=== PATIENT | male | born 1960 | race Caucasian/White ===

== ENCOUNTER → 2019-03-03 07:38 | Outpatient (CLI) | payer OTHER, SELFPAY ==
[2019-03-03 09:01] LABS: Blood Urea Nitrogen 15 mg/dL (7-18); Creatinine,Serum 0.88 mg/dL (0.70-1.30); Estimated Glomerular Filt Rate 89 ml/min (>60); GFR (African American) 107 ML/MIN (>60)
== END ==
PROVIDERS: Visit Provider Psychiatry & Neurology Neurology
DX: G40.119 Localization-related (focal) (partial) symptomatic epilepsy and epileptic syndromes with simple partial seizures, intractable, without status epilepticus (principal)
CPT/HCPCS: 36415; 82565; 84520

== ENCOUNTER → 2019-03-05 14:53 | Outpatient (CLI) | payer OTHER, SELFPAY ==
--- NOTE | 2019-03-05 15:03 | MR_ITS ---
PROCEDURE: MR HEAD/BRAIN WO/W CON CLINICAL INDICATION: LOCALIZATION RELATED EPILEPSY COMPARISON: No exams were available for comparison TECHNIQUE: Routine multiplanar multi echo sequences are performed without and with gadolinium enhancement. FINDINGS: No midline shift, mass effect, intracranial hemorrhage, hydrocephalus, or acute infarction. The cerebellopontine angles, cerebellum, and brainstem are unremarkable. No enhancing lesion is evident. There is mild generalized atrophy with only a few periventricular T2 white matter hyperintensities which may be related to skin anastacio gliotic change from microvascular disease. There is some irregularity of the superior surface of the hippocampal gyrus on the right with mild asymmetrical prominence of the temporal horn of the right lateral ventricle. 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 Please correlate with the EEG findings. The pituitary, optic chiasm, and craniocervical junction have an unremarkable appearance. There is atrophy of the corpus callosum. The mid and posterior aspect of the corpus callosum is missing consistent with partial agenesis of the corpus callosum. No mastoid effusion or sinus air-fluid level. IMPRESSION: 1. Partial agenesis of the corpus callosum 2. Mild cortical irregularity of the right hippocampal gyrus and mild prominence of the temporal horn of the right lateral ventricle. 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 Please correlate with EEG findings and history 3. Mild generalized atrophy with minimal periventricular ischemic gliotic change Dictated by: Cliff Giron MD 03/05/2019 18:18 Electronically signed by Cliff Giron MD in [place] 03/06/2019 10:49
== END ==
PROVIDERS: PCP Family Medicine; Visit Provider Psychiatry & Neurology Neurology
DX: G40.119 Localization-related (focal) (partial) symptomatic epilepsy and epileptic syndromes with simple partial seizures, intractable, without status epilepticus (principal)
CPT/HCPCS: 70553; A9576

== ENCOUNTER → 2019-09-20 15:52 | Outpatient (CLI) | payer OTHER, SELFPAY ==
[2019-09-20 18:32] LABS: Coronavirus 19 IgG Antibody Negative (Negative); Coronavirus 19 IgM Antibody Negative (Negative)
== END ==
PROVIDERS: PCP Family Medicine; Visit Provider Family Medicine
DX: Z03.818 Encounter for observation for suspected exposure to other biological agents ruled out (principal)
CPT/HCPCS: 36415; 86328

== ENCOUNTER → 2021-08-10 16:48 | Outpatient (CLI) | payer OTHER, SELFPAY ==
[2021-08-17 01:07] LABS: Pancreatic Elastase, Fecal 154 (>200)
== END ==
PROVIDERS: Visit Provider Internal Medicine Gastroenterology
DX: R19.5 Other fecal abnormalities (principal); R14.0 Abdominal distension (gaseous)
CPT/HCPCS: 82656

== ENCOUNTER → 2021-09-09 07:49 | Outpatient (CLI) | payer OTHER, SELFPAY ==
[2021-09-09 08:24] LABS: Basophils # 0.1 K/mm3 (0-0.2); Basophils % 2.1 % (0.1-2.0); Eosinophils # 0.1 K/mm3 (0.0-0.4); Eosinophils % 0.9 % (0.1-12.0); Hematocrit 45.4 % (42.0-52.0); Hemoglobin 15.4 g/dL (14.1-18.0); Lymphocytes # 2.1 K/mm3 (0.7-4.5); Lymphocytes % 30.4 % (10-50); Mean Corpuscular Hemoglobin 30.5 pg (27.0-31.2); Mean Corpuscular Volume 89.7 fl (80-94); Mean Platelet Volume 8.3 fl (7.4-10.4); Monocytes # 0.5 K/mm3 (0.1-1.0); Monocytes % 7.7 % (1.7-9.3); Neutrophils % 58.9 % (37.0-80.0); Platelet Count 298 K/mm3 (142-424); Red Blood Count 5.06 M/mm3 (4.60-6.20); Red Cell Distribution Width 13.2 % (11.5-17.5); White Blood Count 6.9 K/mm3 (4.8-10.8)
[2021-09-09 08:29] LABS: Alanine Aminotransferase 27 U/L (12-78); Albumin Level 4.2 g/dl (3.5-5.0); Albumin/Globulin Ratio 1.4 (1.1-1.8); Alkaline Phosphatase 122 U/L (38-126); Amylase 79 U/L (30-110); Aspartate Amino Transferase 37 U/L (17-59); Bilirubin,Total 0.3 mg/dl (0.2-1.3); Blood Urea Nitrogen 20 mg/dl (9-20); Calcium 9.4 mg/dl (8.4-10.2); Carbon Dioxide 27 mmol/L (22.0-30.0); Chloride 101 mmol/L (98-107); Estimated Glomerular Filt Rate 76 ml/min (>60); GFR (African American) 92 ML/MIN (>60); Glucose 111 mg/dl (74-100); Lipase 59 U/L (23-300); Sodium 136 mmol/L (136-145); Total Protein,Serum 7.2 g/dl (6.3-8.2)
--- NOTE | 2021-09-09 08:41 | CT_ITS ---
FINAL REPORT TECHNIQUE: Pre-and postcontrast axial imaging of the abdomen and pelvis was obtained. This study was performed with techniques to keep radiation doses as low as reasonably achievable, (ALARA). Individualized dose reduction technique using automated exposure control or adjustment of mA and/or kV according to the patient's size were employed. CLINICAL HISTORY: abnormal stool test FINDINGS: The lung bases are clear. There is focal fatty change adjacent to to the falciform ligament, the liver is otherwise homogeneous. The gallbladder is present. The spleen and adrenal glands, are unremarkable. There is no hypervascular pancreatic lesion. There is no pancreatic mass or peripancreatic inflammation. There is no hydronephrosis or renal mass. On precontrast imaging, there are several tiny nonobstructing left renal stones. There is no small bowel obstruction. There is a moderate amount of retained stool. There is no lymphadenopathy or ascites. IMPRESSION: 1. No pancreatic mass or findings of pancreatic inflammation. 2. No acute intra-abdominal abnormality. 3. Tiny nonobstructing left renal stones. Reviewed, Interpreted and Dictated by Anika Alex MD Transcribed by Radha Snyder Authenticated by nAika Alex MD on 09/09/2021 01:17:12 PM [facility]
[2021-09-10 08:22] LABS: CA 19-9 5 U/mL (0-35)
== END ==
PROVIDERS: PCP Family Medicine; Referring Provider Urology; Visit Provider Internal Medicine Gastroenterology
DX: Z01.812 Encounter for preprocedural laboratory examination (principal); Z20.822 Contact with and (suspected) exposure to COVID-19; R97.20 Elevated prostate specific antigen [PSA]; R19.5 Other fecal abnormalities
CPT/HCPCS: 36415; 74170; 80053; 82150; 83690; 85025; 86316; C9803; Q9967; U0003; U0005

== ENCOUNTER 2021-09-11 07:35 | Day surgery (SDC) | payer OTHER, SELFPAY ==
[2021-09-09 09:41] VITALS: BMI 26.6
[2021-09-11 07:52] VITALS: BP 150/74; PULSE 63; RESP 18; TEMP 36.4; O2SAT 97
--- NOTE | 2021-09-11 10:09 | P.PN_ITS ---
[facility] Anesthesia Checklist - Structural Data Admitted From: Home Planned Operative Procedure/s: prostate bx Consent for Planned Operative Procedure(s) Verified: Yes - Additional verifications Anesthesia Reactions: No Hx Blood Transfusions: No Blood Transfusion Reaction: No - Airway Assessment C-Spine Mobility Assessed: Yes TMJ Mobility Assessed: Yes Dentition: Poor Dentition - Neurological Assessment Level of Consciousness: Awake, Alert, Appropriate - Anesthesia Plan Anesthesia Risk discussed: Yes Anesthesia Plan: Verified ASA Class: III Anesthesia Type: MAC [facility] History I have reviewed the patient's past medical history: Yes Medical History: Reports:: BPH, Hyperlipidemia, Hypertension, Seizures Denies:: Cancer, Diabetes Mellitus Type 1, Diabetes Mellitus Type 2, Internal Pacemaker, MRSA *Have you ever received a pneumonia vaccine?: No *Have you received a flu vaccine this season?: Yes Other Medical History: Reports: Thyroid Disease. Denies: Blood Transfusion Reaction Anesthesia experience/problems:: none Other Surgeries: Yes: No Previous Surgery, Appendectomy, Colonoscopy, Hernia Repair. No: Pacemaker Amputation: No Fractures: No - *Social History Last grade of school completed: High school graduate Smoking Status: Former smoker Alcohol Intake: current Alcohol Intake Frequency:: holidays/special occasions only Substance Use Type: denies use *Occupational Status:: employed Housing: house Household Members: spouse *Travel in the last 8 weeks: None Family Hx:: Heart Attack
[2021-09-11 10:20] VITALS: BP 99/60; PULSE 58; RESP 16; TEMP 36.2; O2SAT 94
[2021-09-11 10:30] VITALS: BP 104/70; PULSE 67; RESP 16; TEMP 36.2; O2SAT 96
--- NOTE | 2021-09-11 10:39 | HMH.OPNOTE ---
Date of procedure: 09/11/21 Pre-op Diagnosis:: Elevated PSA Post-op Diagnosis:: Elevated PSA Procedure performed:: Prostate biopsies with transrectal ultrasound guidance Surgeon:: Zeke Kinsey MD AUTO BODY TECHNICIAN:: Glynn Meehan Anesthesia: MAC Estimated blood loss (mL): 0 Clinical Note:: 60-year-old white male with recent PSA elevation of 9.7 and suspicious prostate examination with some firmness on the left side. Patient presents for prostate biopsy. He started preoperative antibiotics yesterday and he will perform his preoperative enema. Operative findings:: Prostate measured 21.7 cm?. Small calcification was noted in the central zone. There were some hypoechoic areas on the left side as well as a hyperechoic area at the left apex. Operative note:: Patient taken to the operating suite after informed consent was obtained. On the stretcher he was placed into the left lateral decubitus position and monitored anesthesia care administered. After adequate analgesia the transrectal ultrasound probe was placed into the rectum and the prostate examined in a systematic fashion. The prostate measured 21.7 cm?. Small calcification was noted centrally. There were some hypoechoic areas in the left peripheral zone as well as a hyperechoic area in the left apex. Local anesthetic was placed into each neurovascular bundle and 12 biopsies then performed in a systematic fashion including through the hypoechoic and hyperechoic regions. The probe removed the patient tolerated the procedure well there are no complications. Condition: stable Disposition: same day Specimens:: Prostate biopsies x12 Complications:: None
[2021-09-11 10:40] VITALS: BP 126/84; PULSE 59; RESP 16; TEMP 36.2; O2SAT 98
[2021-09-11 10:50] VITALS: BP 118/56; PULSE 57; RESP 16; TEMP 36.6; O2SAT 98
== END 2021-09-11 10:50 | disposition home or self-care (01) ==
LOC: OR 07:36
PROVIDERS: PCP Family Medicine; Visit Provider Urology
PROC: (CPT 55700; principal; 2021-09-11 09:00)
DX: C61 Malignant neoplasm of prostate (principal); E78.5 Hyperlipidemia, unspecified; I10 Essential (primary) hypertension; R56.9 Unspecified convulsions; Z79.899 Other long term (current) drug therapy; Z82.3 Family history of stroke; Z88.0 Allergy status to penicillin
CPT/HCPCS: 55700

== ENCOUNTER → 2021-09-23 08:52 | Outpatient (CLI) | payer OTHER, SELFPAY ==
--- NOTE | 2021-09-23 08:52 | NM_ITS ---
FINAL REPORT CLINICAL HISTORY: prostate cancer 9:00am 26.8 mci tc mdp FINDINGS: Multiple projection images of the axial and appendicular skeleton were obtained after the intravenous injection of 26.8 mCi technetium 99m MDP. Correlation is made with right rib radiographs performed the same day. Increased tracer activity is seen in the right second anterior rib. No abnormality seen in the plain radiographs in this region. Mildly increased tracer activity is seen in the shoulders, knees, ankles consistent with degenerative change. No other abnormality is identified IMPRESSION: Focus of increased tracer activity in the right 2nd anterior rib of uncertain etiology. Differential diagnosis include nondisplaced fracture or bony metastases. This could be further evaluated with follow-up bone scan or chest CT. Other areas of increased tracer activity are felt to be degenerative. Reviewed, Interpreted and Dictated by Jamaal Ferguson III, MD Transcribed by Marnie Cavanaugh Authenticated and [facility]
--- NOTE | 2021-09-23 12:59 | XR_ITS ---
FINAL REPORT CLINICAL HISTORY: HOT SPOT ON RT RIB ON BONE SCAN, NO PAIN OR PRIOR INJURY PER PATIENT FINDINGS: RIGHT RIB SERIES 4 views of the right ribs show no fractures. There is no definite bony mass identified. There is no pneumothorax or pleural fluid collection. Frontal chest radiograph is unremarkable. IMPRESSION: Negative right rib series. Reviewed, Interpreted and Dictated by Jamaal Ferguson III, MD Transcribed by Inna Zambrano Authenticated and [facility]
== END ==
PROVIDERS: PCP Family Medicine; Visit Provider Urology
DX: C61 Malignant neoplasm of prostate (principal)
CPT/HCPCS: 71101; 78306; A9503

== ENCOUNTER → 2021-11-14 08:57 | Outpatient (CLI) | payer OTHER, SELFPAY | PROVIDERS: PCP Family Medicine; Visit Provider Urology | DX: U07.1 COVID-19 (principal); C61 Malignant neoplasm of prostate | CPT/HCPCS: C9803; U0003; U0005 ==

== ENCOUNTER 2021-11-16 09:34 | Day surgery (SDC) | payer OTHER, SELFPAY ==
[2021-11-12 10:52] VITALS: BMI 25.0
[2021-11-16 09:48] VITALS: BP 121/90; PULSE 66; RESP 18; TEMP 36.8; O2SAT 97
[2021-11-16 12:02] VITALS: BP 127/68; PULSE 64; RESP 18; TEMP 36.7; O2SAT 97
--- NOTE | 2021-11-16 12:22 | HMH.OPNOTE ---
Date of procedure: 11/16/21 Pre-op Diagnosis:: Prostate cancer Post-op Diagnosis:: Prostate cancer Procedure performed:: Gold fiducial placement with transrectal ultrasound guidance Surgeon:: Zeke Kinsey MD Anesthesia: local Estimated blood loss (mL): 0 Clinical Note:: 60-year-old white male with recently diagnosed high-grade prostate cancer presents for placement of gold fiducials for upcoming external beam radiation. He is also on hormonal therapy. Patient tested positive for COVID but is asymptomatic. We discussed placement of the seeds under local anesthetic as he had eaten this morning he wished to proceed. Operative findings:: Prostate was visualized easily and 4 gold seeds were placed into their appropriate positions in the prostate. Operative note:: Patient taken to the negative pressure room in the postanesthesia care unit due to his diagnosis of COVID. On the stretcher he was placed into the left lateral decubitus position. He had taken his preoperative antibiotic and enema. A transrectal ultrasound probe was placed into the rectum and the prostate was easily visualized. Local anesthetic was placed into each neurovascular bundle and after 3 minutes for skilled fiducial was placed into the left lateral base. A second was placed at the left lateral apex. Third seed was placed into the right lateral base and the fourth placed into the right lateral apex. Patient tolerated procedure well there are no complications. Condition: stable Disposition: same day Specimens:: None Complications:: None
== END 2021-11-16 12:12 | disposition home or self-care (01) ==
LOC: OR 09:35
PROVIDERS: PCP Family Medicine; Visit Provider Urology
PROC: (CPT 55876; principal; 2021-11-16 10:45)
DX: C61 Malignant neoplasm of prostate (principal); N40.0 Benign prostatic hyperplasia without lower urinary tract symptoms; E07.9 Disorder of thyroid, unspecified; I10 Essential (primary) hypertension
CPT/HCPCS: 55876; 76942; A4648

== ENCOUNTER 2023-10-08 08:04 | Outpatient (CLI) | payer OTHER, SELFPAY | END 2023-10-08 23:59 | disposition home or self-care (01) | LOC: LAB 08:05 | PROVIDERS: PCP Family Medicine; Visit Provider Family Medicine | DX: Z02.9 Encounter for administrative examinations, unspecified (principal) ==

== ENCOUNTER 2023-10-11 07:10 | Outpatient (CLI) | payer OTHER, SELFPAY ==
[2023-10-11 08:26] LABS: Chloride 103 mmol/L (98-107); Sodium 134 mmol/L (136-145)
[2023-10-11 08:27] LABS: Potassium 4.5 mmoL/L (3.5-5.1)
[2023-10-11 08:29] LABS: Alanine Aminotransferase 29 U/L (12-78); Albumin Level 4.2 g/dl (3.5-5.0); Albumin/Globulin Ratio 1.6 (1.1-1.8); Alkaline Phosphatase 150 U/L (38-126); Anion Gap 9.5 mEq/L (5-15); Aspartate Amino Transferase 35 U/L (17-59); Bilirubin,Total 0.3 mg/dl (0.2-1.3); Blood Urea Nitrogen 16 mg/dl (9-20); Carbon Dioxide 26 mmol/L (22.0-30.0); Cholesterol 239 mg/dl (140-200); Estimated Glomerular Filt Rate 98 ml/min (>60); GFR (African American) 118 ML/MIN (>60); Globulin 2.6 g/dL (1.3-3.2); Total Protein,Serum 6.8 g/dl (6.3-8.2); Triglycerides 161 mg/dl (30-150); VLDL Cholesterol 32 mg/dL (0-40)
[2023-10-11 08:30] LABS: Calcium 9.7 mg/dl (8.4-10.2); Chol/HDL Ratio 3.9 (1-3.5); Glucose 108 mg/dl (74-100); HDL Cholesterol 62 mg/dl (40-60)
[2023-10-11 08:41] LABS: Direct LDL Cholesterol 122.32 mg/dL (100-129)
[2023-10-11 09:01] LABS: Thyroid Stimulating Hormone 6.74 uIU/mL (0.465-4.68)
== END 2023-10-11 23:59 | disposition home or self-care (01) ==
PROVIDERS: PCP Family Medicine; Visit Provider Family Medicine
DX: E78.00 Pure hypercholesterolemia, unspecified (principal); E03.9 Hypothyroidism, unspecified
CPT/HCPCS: 36415; 80053; 80061; 84443

== ENCOUNTER 2024-03-06 08:35 | Outpatient (CLI) | payer BC, SELFPAY | END 2024-03-06 23:59 | disposition home or self-care (01) | LOC: LAB 08:35 | PROVIDERS: PCP Family Medicine; Visit Provider Internal Medicine Gastroenterology | DX: Z02.9 Encounter for administrative examinations, unspecified (principal) ==

== ENCOUNTER 2024-03-07 06:17 | Outpatient (CLI) | payer BC, SELFPAY ==
[2024-03-09 07:14] LABS: Calprotectin, Fecal 618 ug/g (0-120)
[2024-03-13 23:08] LABS: Lactoferrin, Fecal, Quant. 6.19 ug/mL(g) (0.00-7.24)
== END 2024-03-07 23:59 | disposition home or self-care (01) ==
LOC: LAB.DROPOF 06:21
PROVIDERS: PCP Family Medicine; Visit Provider Internal Medicine Gastroenterology
DX: R15.9 Full incontinence of feces (principal); R19.5 Other fecal abnormalities
CPT/HCPCS: 83630; 83993

== ENCOUNTER 2024-08-23 06:35 | Day surgery (SDC) | payer BC, SELFPAY ==
[2024-08-21 14:19] VITALS: BMI 26.6
[2024-08-23] VITALS (7 sets, daily range): BP systolic 91–128; BP diastolic 53–76; PULSE 58–78; RESP 14–18; TEMP 36.1–36.4; O2SAT 94–99
[2024-08-23] MEDS: LACTATED RINGERS 1000ML 1,000 ML 50 ML IV (07:22)
--- NOTE | 2024-08-23 07:25 | P.PNANES_ITS ---
[facility] Disclaimer: The information contained in this section may have been updated after the patient was seen, as this information can be updated by other users. Medical History (Updated 08/23/24 @ 07:15 by Robyn Quezada RN) Hypertension TBI (traumatic brain injury) Thyroid disease Hyperlipidemia Prostate cancer Surgical History History of hernia surgery History of appendectomy History of prostate surgery Family History (Updated 08/23/24 @ 07:15 by Robyn Quezada RN) Other Diabetes Social History (Updated 08/23/24 @ 07:15 by Robyn Quezada RN) Smoking Status: Never smoker second hand exposure: No alcohol intake: current alcohol intake frequency: holidays/special occasions only substance use type: denies use current occupational status: retired Travel in the last 8 weeks?: None household members: spouse housing: house 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 current occupational exposures/hazards: No caffeine: Yes Have you lived/traveled outside US in past 30 days?: No Contact w/someone who lives/traveled outside US past 30 days?: No Exposure to someone with infectious disease in past 14 days?: No Do you have a fever (greater than 100.4 F or 38 C)?: No Have you tested positive for COVID-19?: No Exposed to someone with COVID-19 in past 14 days?: No Do you have a sore throat?: No Do you have a cough?: No Do you have any weakness?: No Are you experiencing any nausea/vomitting?: No Do you have any diarrhea?: No Are you experiencing any unusual bleeding?: No Do you have any muscle aches/pain?: No Do you have any abdominal pain?: No Are you experiencing loss of taste or smell?: No [facility] [place] Anesthesia Checklist Patient Identification Patient Identification: Arm Band and Verbal (Name & ) Structural Data Admitted From: Home Planned Operative Procedure/s: colonoscopy Consent for Planned Operative Procedure(s) Verified: Yes Verified Documents: Surgical Consent NPO Status Verified Time NPO: 00:00 Chart Verification Results Verified: None Additional verifications Anesthesia Reactions: No Hx Blood Transfusions: No Blood Transfusion Reaction: No Airway Assessment Mallampati Score:: Class II C-Spine Mobility Assessed: Yes TMJ Mobility Assessed: No Dentition: Good Dentition Neurological Assessment Level of Consciousness: Awake, Alert and Appropriate Hx Seizures: Yes Numbness or tingling in extremities: No Anesthesia Plan Anesthesia Risk discussed: Yes Anesthesia Plan: Verified ASA Class: II Anesthesia Type: MAC
--- NOTE | 2024-08-23 07:31 | EXP.HP ---
History of Present Illness *Admission Date: 08/23/24 *Reason for visit:: Fecal seepage/elevated fecal calprotectin/radiation proctitis/mucus in stoo *History of present illness: Mr. Iqbal is a 63-year-old gentleman who is here for diagnostic colonoscopy secondary to seepage, fecal urgency and mucus in stool. He did have an elevated fecal calprotectin previously. The examination is deemed medically necessary for diagnostic colonoscopy. The patient has been seen, interviewed and examined prior to the procedure by both myself and the anesthesia provider. [facility] Disclaimer: The information contained in this section may have been updated after the patient was seen, as this information can be updated by other users. Medical History (Updated 08/23/24 @ 07:34 by René Mueller II, MD) Hypertension TBI (traumatic brain injury) Thyroid disease Hyperlipidemia Prostate cancer Surgical History History of hernia surgery History of appendectomy History of prostate surgery Family History (Updated 08/23/24 @ 07:15 by Robyn Quezada RN) Other Diabetes Social History (Updated 08/23/24 @ 07:15 by Robyn Quezada RN) Smoking Status: Never smoker second hand exposure: No alcohol intake: current alcohol intake frequency: holidays/special occasions only substance use type: denies use current occupational status: retired Travel in the last 8 weeks?: None household members: spouse housing: house 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 current occupational exposures/hazards: No caffeine: Yes Have you lived/traveled outside US in past 30 days?: No Contact w/someone who lives/traveled outside US past 30 days?: No Exposure to someone with infectious disease in past 14 days?: No Do you have a fever (greater than 100.4 F or 38 C)?: No Have you tested positive for COVID-19?: No Exposed to someone with COVID-19 in past 14 days?: No Do you have a sore throat?: No Do you have a cough?: No Do you have any weakness?: No Are you experiencing any nausea/vomitting?: No Do you have any diarrhea?: No Are you experiencing any unusual bleeding?: No Do you have any muscle aches/pain?: No Do you have any abdominal pain?: No Are you experiencing loss of taste or smell?: No Other Medical History Have you received the Flu Vaccine for this season: Yes Have you received the Pneumonia Vaccine: No Review of Systems Review of Systems Review of systems (narrative): Negative *Cardiovascular Comments: Negative *Gastrointestinal Comments: Negative *Genitourinary Comments: Negative *Musculoskeletal Comments: Negative *Neurologic Comments: Negative Meds Home Medications and Allergies Home Medications ?Medication ?Instructions ?Recorded ?Confirmed ?Type bupropion HCl 150 mg 24 hr tablet, 150 mg PO DAILY mood 08/17/21 08/23/24 History extended release doxazosin 2 mg tablet 2 mg PO HS htn 08/17/21 08/23/24 History galantamine 4 mg tablet 4 mg PO BID memory 08/17/21 08/23/24 History melatonin 5 mg capsule 5 mg PO HS sleep 08/17/21 08/23/24 History omeprazole 40 mg capsule,delayed 40 mg PO DAILY GERD 08/17/21 08/23/24 History release getdm-i-tcldghzytpcmf 400 unit 400 unit PO DAILY PRN per md 03/06/24 08/23/24 History tablet (Beano) ascorbate calcium (vitamin C) 500 500 mg PO DAILY 03/06/24 08/23/24 History mg tablet calcium polycarbophil 625 mg 1,250 mg PO DAILY 03/06/24 08/23/24 History tablet (FiberCon) levothyroxine 75 mcg tablet 75 mcg PO DAILY 03/06/24 08/23/24 History (Synthroid) memantine 10 mg tablet 10 mg PO BID 03/06/24 08/23/24 History methylphenidate HCl 10 mg tablet 10 mg PO BID 03/06/24 08/23/24 History multivitamin 1 tab PO DAILY 03/06/24 08/23/24 History omega 6-hwt-tpa-fish oil 300 1 cap PO DAILY 03/06/24 08/23/24 History mg-1,000 mg capsule (Fish Oil) oxcarbazepine 300 mg tablet 300 mg PO BID seizures 03/06/24 08/23/24 History rosuvastatin 40 mg tablet 40 mg PO DAILY 03/06/24 08/23/24 History mesalamine 400 mg capsule (with 1,200 mg (3 x 400 mg) PO BID #180 03/10/24 08/23/24 Rx delayed release tablets inside) ea sodium,potassium,mag sulfates 17.5 See Rx Instructions PO .COMPLEX 08/08/24 08/23/24 Rx gram-3.13 gram-1.6 gram oral soln #354 mL (Suprep Bowel Prep Kit) asanyr-alqwkdrr-oynwzvr 1 cap PO .With meals #90 caps 08/16/24 08/23/24 Rx 36,000-114,000-180,000 unit capsule,delay rel (Creon) New Prescriptions to Start Prescriptions: Allergies Allergy/AdvReac Type Severity Reaction Status Date / Time penicillin V Allergy Mild Unknown Verified 08/23/24 07:05 allergy reaction Exam Data for Last 24 hours Vital signs and Labs for Last 24 Hours: Temp Pulse Resp BP Pulse Ox O2 Del Method 97.5 F L 58 L 18 128/73 96 Room Air 08/23/24 07:07 08/23/24 07:07 08/23/24 07:07 08/23/24 07:07 08/23/24 07:07 08/23/24 07:07 I & O for Last 24 hours: Intake & Output 08/20/24 08/21/24 08/22/24 08/23/24 23:59 23:59 23:59 23:59 Weight 165 lb *Routine HEENT Exam Head: Present normocephalic Eye: Present EOMI and PERRL ENT: Present mucous membranes moist *Routine Neck Exam Neck: Present supple *Routine Respiratory Exam Respiratory: Present CTA bilaterally *Routine Cardiovascular Exam Cardiovascular: Present RRR *Routine Abdominal Exam Abdominal: Present soft and normoactive bowel sounds; Absent tenderness *Routine Rectal Exam Rectal:: deferred *Routine Genitalia Exam Genitalia:: deferred *Routine Extremities Exam Extremities: Absent cyanosis, clubbing or edema *Routine Skin Exam Skin: Present warm; Absent rash *Routine Neurological Exam Neurological: Present alert and oriented X3 Assessment and Plan *Assessment and plan (1) Fecal soiling: Status: Acute Category: Medical Code(s): R15.1 - Fecal smearing (2) Incomplete passage of stool: Status: Acute Category: Medical Code(s): R15.0 - Incomplete defecation (3) Radiation proctitis: Status: Acute Category: Medical Code(s): K62.7 - Radiation proctitis (4) Fecal incontinence: Status: Acute Category: Medical Code(s): R15.9 - Full incontinence of feces (5) Mucus in stool: Status: Acute Category: Medical Code(s): R19.5 - Other fecal abnormalities (6) Personal history of adenomatous and serrated colon polyps: Status: Acute Category: Medical Code(s): Z86.0101 - Personal history of adenomatous and serrated colon polyps Plan A/P: 1. Fecal soiling/incontinence with incomplete passage of stool and mucus in stool is the preprocedural diagnosis. The patient will be anesthetized/sedated using MAC sedation. The patient has been seen and examined. Cardiac and lung assessment prior to the examination is stable. Proceed with planned diagnostic colonoscopy.
--- NOTE | 2024-08-23 07:38 | HMH.PROCNOTE ---
[facility] Procedure Note Date: 08/23/24 Time: 07:52 Procedure Note:: Colonoscopy Procedure Report: Colonoscopy with cold snare polypectomy and cold biopsies Endoscopist: René Mueller II, MD Referring physician: Chin Cochran MD Date of Procedure: August 23, 2024 Equipment: Olympus 190 variable stiffness pediatric colonoscope Sedation: MAC sedation Indication: Mr. Iqbal is a 63-year-old gentleman who is here for diagnostic colonoscopy. He has had fecal soiling and seepage. This has been going on for about a year and was occurring before he was diagnosed with prostate cancer. At the time of his colonoscopy in July 2021, I had found a left lateral margin prostate nodule and referred the patient to Dr. Zeke Kinsey (urology). He has had radiation treatment and followed. He is on FiberCon 1 tablet twice daily and Creon. He was also on mesalamine. He did feel that one of the medications was causing more of the leakage and seepage and he stopped this. His colonoscopy in July 2021 revealed 2 polyps (small serrated adenoma x 1/hyperplastic polyp x 1) and he was given 5-year surveillance interval. His brother had colon cancer in his early 50s. The patient does note some mucus with his bowel movements but no blood. He has had no abdominal pain or weight loss. He does have some bowel frequency and bloating. Procedure: Prior to the procedure, a history and physical exam was performed, and patient's medications and allergies were reviewed. The risks, benefits and alternatives of the sedation and procedure were discussed with the patient. All questions were answered and informed consent was obtained. The patient was brought to the procedure room. Patient identification and proposed procedure were verified by the physician and the nurse. The patient was placed in a left lateral decubitus position and the scope was passed under direct vision. Throughout the procedure, the patient's blood pressure, pulse, and oxygen saturations were monitored continuously. The colonoscopy was accomplished without difficulty. The patient tolerated the procedure well. Findings: On digital rectal examination there was normal rectal tone. There were no external hemorrhoids. The colonoscope was introduced through the anal canal to the rectum and advanced to the cecum. The ileocecal valve and appendiceal orifice were identified. The scope was advanced a short distance into the ileum which appeared grossly normal. The scope was then withdrawn into the colon. The cecum, ascending and transverse colon and mucosa were grossly normal. There was a single 6 to 7 mm polyp in the transverse colon removed via cold snare polypectomy. Random biopsies were taken from the right colon to rule out microscopic colitis. There were scattered diverticuli throughout the descending and sigmoid colon (LEFT colon). The rectum itself was normal. Upon retroflexion within the rectum there were grade 1 internal hemorrhoids. There was no clear evidence of any radiation proctitis. The preparation was excellent throughout with Jefferson Preparation Score of 9. The cecal time was 12 minutes. Impression: 1. Transverse colon polyp (6 to 7 mm) 2. Left-sided diverticulosis 3. Small grade 1 internal hemorrhoids Plan: I will follow-up the polyp histology and recommend repeat surveillance colonoscopy again in 5 years. I will follow-up the random biopsies. I would continue fiber bulk (FiberCon 2 tablets p.o. twice daily) and discontinue mesalamine or Creon which she feels has worsened his leakage/seepage. I will discuss all the findings with the patient and family.
== END 2024-08-23 08:46 | disposition home or self-care (01) ==
PROVIDERS: PCP Family Medicine; Visit Provider Internal Medicine Gastroenterology
PROC: 0DJD8ZZ Inspection of Lower Intestinal Tract, Via Natural or Artificial Opening Endoscopic (ICD-10-PCS; CPT 45378; principal; 2024-08-23 07:30)
DX: R15.1 Fecal smearing (principal); K62.7 Radiation proctitis; R15.9 Full incontinence of feces; R19.5 Other fecal abnormalities; Z86.0101 Personal history of adenomatous and serrated colon polyps; D12.3 Benign neoplasm of transverse colon; K57.30 Diverticulosis of large intestine without perforation or abscess without bleeding; K64.0 First degree hemorrhoids
CPT/HCPCS: 45380; 45385; J7120

== ENCOUNTER 2025-01-11 08:16 | Outpatient (CLI) | payer MEDICARE, SELFPAY ==
--- OUTSIDE RECORDS SUMMARY | 2024-02-20 10:15 | XMS_ITS ---
Author [facility] Address [address] [facility] [address] [place] [id number] Care Team Providers Care Chief Lifestyle Officer Name Role Phone Felix Cochran Primary Care Provider [phone] Hair Currie Unavailable [phone] Allergies Allergen (clinical drug ingredient) Drug/Non Drug Allergy documented on EMR Reaction Allergy Type Onset Date Status Penicillin Unknown Drug Allergy Active Results Component Value Reference Range Notes CBC Fingerstick (in house) Reviewed date:02/21/2024 10:09:18 AM Interpretation: Performing Lab: Notes/Report: wbc 9.9 3.5 - 10 lym 19.5% 15 - 50 mid 5.1% 2 - 15 gran 75.4% 35 - 80 rbc 4.52 3.5 - 5.5 hgb 13.3 11.5 - 16.5 hct 40.4 35 - 55 mcv 89.4 75 - 100 mch 29.6 25 - 35 mchc 33.1 31 - 38 plat 219 100 - 400 REASON FOR VISIT runny nose lost voice few days ago Medications Medication SIG (Take, Route, Frequency, Duration) Notes Start Date End Date Status buPROPion HCl ER (SR) 150 MG 1 tablet in the morning Orally Once a day; Duration: 90 days Active Levothyroxine Sodium 75 MCG 1 tablet in the morning on an empty stomach Orally Once a day; Duration: 90 days Active Ritalin 10 MG [address] omach Orally Twice a day 01/20/2024 Active Betamethasone Dipropionate 0.05 % 1 application Externally Once a day 06/09/2023 Active Omeprazole 40 MG 1 cap(s) Orally once daily; Duration: 90 days Active Galantamine Hydrobromide 4 MG 1 tab(s) orally 2 times a day; Duration: 90 days Active Memantine HCl 10 MG 1 tab(s) orally 2 ti mes a day; Duration: 90 days Active Doxazosin Mesylate 2 MG 1 tab(s) orally once a day; Duration: 90 days Active Melatonin 5 MG 1 CAP(S) Orally ONCE A DAY (AT BEDTIME) Active Align 4 MG as directed Orally 06/09/2023 Active Multivitamin - 1 tab(s) orally once a day Active Fish Oil 500 MG 1 cap(s) orally once daily Active Fiber Choice 1 TABS P.O. Q DAY Active Cefdinir 300 MG 1 cap(s) Orally Two times a day; Duration: 7 days 02/20/2024 Active Rosuvastatin Calcium 40 MG 1 tablet Oral ly At Bed Time; Duration: 30 day(s) 08/11/2023 Active Vitamin C 1000 MG 1 tablet Orally Once a day; Duration: 30 day(s) Active OXcarbazepine 300 MG 1 & 1/2tablet Orall y Twice a day Active SAMe 400 MG as directed Orally T wo times a day Active Vital Signs Weight 164.4 lbs 02/20/2024 Blood pressure systolic 130 mm Hg 02/20/20 24 Blood pressure diastolic 84 mm Hg 024 Heart Rate 95 /min 02/20/2024 Height 66.25 in 02/20/2024 BMI 26.33 kg/m2 02/20/2024 Encounters Encounter Location Date Provider Diagnosis [facility] [address] [place], [place] [id number] 02/20/2024 Hair Currie Acute URI J06.9 Assessments Encounter Date Diagnosis (ICD Code) Assessment Notes Treatment Notes Treatment Clinical Notes Section Notes 02/20/2024 Acute URI (ICD-10 - J06.9) Plan Of Treatment Medication Medication Name Sig Start Date Stop Date Notes Cefdinir 300 MG 1 cap(s) Orally Two times a day; Duration: 7 days 02/20/2024 Next Appt Details Follow Up: prn, Reason: Provider Name:Felix Batista , 02/25/2025 11:00:00 AM, [address], [address], [place], [phone], Progress Notes * MERLYN KEY GENODOB:1960 (64 yo M)Acc No.[id number]:02/20/2024 Progress Notes Patient: MERLYN SILVA Provider: Jose Currie M.D. :1960 A ge:63 Y S ex:Male Date:02/20/2024 Address: [address], [place], [id number] Pcp:Felix Cochran Subjective: * Chief Complaints: * 1 . Runny nose lost voice few days ago. * HPI: E NT/respiratory: 63 year old male presents with c/o cough P t complains of greenish yellow sputum production cough that started last week. Associated with nasal congestion and fatigue. Denies : Fever. D enies : body aches. * ROS: D ERMATOLOGY: no R jaskaran. n o H lux. G ASTROENTEROLOGY: no N ausea. n o V omiting. U ROLOGY: no D ifficulty urinating. n o B lood in urine. * Medical History: S eizures, Hyperlipidemia, Post remote head trauma, Overactive bladder. * Surgical History: B rain 09/1988, Appendectomy , colonoscopy with polypectomy, Dr. Mueller 05/2010, Cochlear implant, [facility] 06/2019. * Hospitalization/Major Diagno stic Procedure: D enies Past Hospitalization. * Family History: F ather: . M other: alive. 2 brother(s) , 5 sister(s) . 1 son(s) , 1 daughter(s) . . * Social History: C URRENT TOBACCO USE S moking Status: Patient does NOT smoke. C affeine: yes, frequency:. Marital Status: . Past smoking status: yes, PPD: occasional , years: ,determination:. Alcohol: socially, Type: , Frequency: ,Years: , Determination:. * Medications: T aking Rosuvastatin Calcium 40 MG Tablet 1 tablet Orally At Bed Time , Taking Vitamin C 1000 MG Tablet 1 tablet Orally Once a day , Taking OXcarbazepine 300 MG Tablet 1 & 1/2tablet Orally Twice a day , Taking SAMe 400 MG Tablet as directed Orally Two times a day , Taking Fiber Choice 1 TABS P.O. Q DAY , Taking Multivitamin - Tablet 1 tab(s) orally once a day , Taking Fish Oil 500 MG Capsule 1 cap(s) orally once daily , Taking Melatonin 5 MG Tablet 1 CAP(S) Orally ONCE A DAY (AT BEDTIME) , Taking Align 4 MG Capsule as directed Orally , Taking Betamethasone Dipropionate 0.05 % Cream 1 application Externally Once a day , Taking Omeprazole 40 MG Capsule Delayed Release 1 cap(s) Orally once daily , Taking Memantine HCl 10 MG Tablet 1 tab(s) orally 2 times a day , Taking Doxazosin Mesylate 2 MG Tablet 1 tab(s) orally once a day , Taking Galantamine Hydrobromide 4 MG Tablet 1 tab(s) orally 2 times a day , Taking buPROPion HCl ER (SR) 150 MG Tablet Extended Release 12 Hour 1 tablet in the morning Orally Once a day , Taking Levothyroxine Sodium 75 MCG Tablet 1 tablet in the morning on an empty stomach Orally Once a day , Taking Ritalin 10 MG Tablet 1 tablet on empty stomach Orally Twice a day , Discontinued Myrbetriq 25 MG Tablet Extended Release 24 Hour 1 orally once daily , Discontinued Sildenafil Citrate 20 MG Tablet 2 tab(s) orally as directed , Medication List reviewed and reconciled with the patient * Allergies: P enicillin. Objective: * Vitals: W t:164.4, Temp:98.0, BP:130/84, HR:95, Nurse:carolyn, Ht: 66.25, BMI:26.33. * Examination: E NT/Respiratory: General Appearance: N AD. O ral cavity : m inimal erythema without exudate on pharynx. N priya : n o cervical lymphadenopathy. H eart : RRR. L ungs: c lear to auscultation bilaterally. Assessment: * Assessment: 1Bre butler URI - J06.9 (Primary) Plan: * Treatment: Value Reference Range w bc 9.9 3.5 - 10 * l ym 19.5% 15 - 50 * m id 5.1% 2 - 15 * g ran 75.4% 35 - 80 * r bc 4.52 3.5 - 5.5 * h gb 13.3 11.5 - 16.5 * h ct 40.4 35 - 55 * m cv 89.4 75 - 100 * m ch 29.6 25 - 35 * m chc 33.1 31 - 38 * p lat 219 100 - 400 * Ifrah Martin 02/20/2024 2:20:20 PM > , Provider reviewed results while patient in office. * Procedure Codes: 3 6416 CAPILLARY BLOOD DRAW, 16358 CBC WITH AUTO DIFF * Follow Up: p rn * Images: Billing Information: * Visit Code: 56241 Office Visit, Est Pt., Level 3. * Procedure Codes: 94005 CAPILLARY BLOOD DRAW. 32947 CBC WITH AUTO DIFF. * Electronic signature of Lolly Currie MD on 01/11/2025 at 08:56 AM EDT Sign off status: Pending * Provider: Jose Currie M.D. Date: 04/21/2023 Generated for Iraidai lenny/Antony/eTransmitting on: 0 01/11/2025 08:56 AM EDT History and Physical Notes * HPI (History of Present Illness) Category Sub-Category Detail Notes Category Not es ENT/respiratory cough Pt complains of greenish yellow sputum production cough that started last week. Associated with nasal congestion and fatigue Fever body aches Examination Category Sub-Category Detail Notes Category Not es ENT/Respiratory Oral cavity : minimal erythema without exudate on pharynx Neck : no cervical lymphade nopathy Heart : RRR Lungs: clear to auscultatio n bilaterally General Appearance: NAD
--- OUTSIDE RECORDS SUMMARY | 2024-03-05 12:15 | XMS_ITS ---
[facility] Address [address] [facility] [address] [place] [phone] Care Team Providers Care Larry Car Operator Name Role Phone Felix Cochran Primary Care Provider Allergies Allergen (clinical drug ingredient) Drug/Non Drug Allergy documented on EMR Reaction Allergy Type Onset Date Status Penicillin Unknown Drug Allergy Active REASON FOR VISIT 2 mo check up, Needs colon cancer screening & flu vaccine Medications Medication SIG (Take, Route, Frequency, Duration) Notes Start Date End Date Status Galantamine Hydrobromide 4 MG 1 tab(s) orally 2 times a day; Duration: 90 days Active buPROPion HCl ER (SR) 150 MG 1 [...] Orally once daily; Duration: 90 days Active Memantine HCl 10 MG 1 tab(s) orally 2 ti mes a day; Duration: 90 days Active Doxazosin Mesylate 2 MG 1 tab(s) orally once a day; Duration: 90 days Active Align 4 MG as directed Orally 06/09/2023 Active SAMe 400 MG as directed Orally T wo times a day Active Fiber Choice 1 TABS P.O. Q DAY Active Multivitamin - 1 tab(s) orally once a day Active Fish Oil 500 MG 1 cap(s) orally once daily Active Melatonin 5 MG 1 CAP(S) Orally ONCE A DAY (AT BEDTIME) Active Rosuvastatin Calcium 40 MG 1 tablet Oral ly At Bed Time; Duration: 30 day(s) 08/11/2023 Active Vitamin C 1000 MG 1 tablet Orally Once a day; Duration: 30 day(s) Active OXcarbazepine 300 MG 1 & 1/2tablet Orall y Twice a day Active Vital Signs Weight 163.4 lbs 03/05/2024 Blood pressure systolic 132 mm Hg 03/05/20 24 Blood pressure diastolic 80 mm Hg 024 Heart Rate 70 /min 03/05/2024 Height 66.25 in 03/05/2024 BMI 26.17 kg/m2 03/05/2024 Encounters Encounter Location Date Provider Diagnosis [facility] [address] [facility] [address] [facility] [address] [place] [phone] 03/05/2024 Felix Cochran 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 GI consult anticipated. 03/05/2024 Hearing deficit, bilateral (ICD-10 - H91.93) 03/05/2024 Acquired hypothyroidism (ICD-10 - E03.9) Plan Of Treatment Treatment Notes Assessment Notes Organic affective disorder continue pres ent treatment. GI consult anticipated. Next Appt Details Follow Up: 3 Months, Reason: Provider Name:Felix Batista er, 02/25/2025 11:00:00 AM, [address] [facility], [address], [place], [phone], Progress Notes * MERLYN KEY GENODOB:1960 (64 yo M)Acc No.[id number]:03/05/2024 Progress Notes Patient: Tonja URENAMERLYN WARD Provider: Felix Cochran M.D. :1960 A ge:63 Y S ex:Male Date:03/05/2024 Address: [address], [place], [id number] Subjective: * Chief Complaints: * 1 . 2 mo check up. 2. Needs colon cancer screening & flu vaccine. * HPI: P sychology: The patient is here for a check up and states refills are not needed at this time. Pt states he is doing good and denies any new concerns. G astroenterology: Will see Dr. Mueller tomorrow. Thinks he has bowel issues related to irradiation for prostate CA. * ROS: D ERMATOLOGY: no R jaskaran. n o H lux. G ASTROENTEROLOGY: no N ausea. n o V omiting. U ROLOGY: no D ifficulty urinating. n o B lood in urine. * Medical History: S eizures, Hyperlipidemia, Post remote head trauma, Overactive bladder. * Surgical History: B rain 09/1988, Appendectomy , colonoscopy with polypectomy, Dr. Mueller 05/2010, Cochlear implant, [facility] 06/2019. * Family History: F ather: . M [...] stomach Orally Twice a day , Discontinued Cefdinir 300 MG Capsule 1 cap(s) Orally Two times a day , Medication List reviewed and reconciled with the patient * Allergies: P enicillin. Objective: * Vitals: W t:163.4, Temp:97.9, BP:132/80, HR:70, Nurse:ISABELA, Ht: 66.25, BMI:26.17. * Examination: G eneral Examination: General Appearance: N AD. H EENT: u nremarkable.?Oral cavity: n o lesions, mucosa moist and WNL, no erythema. N priya: s upple, no lymphadenopathy.. C hest: n ormal shape and expansion. H eart: R SR. L ungs: c lear to auscultation. A bdomen: s oft and nontender, no organomegaly or masses.. N eurologic Exam: I ntact, gait normal. S kin: n ormal, no rash. P eripheral pulses: n ormal . B ack: normal. E xtremities: n o leg edema. Assessment: * Assessment: 1. O rganic affective disorder - F06.30 (Primary) 2 . H earing deficit, bilateral - H91.93 3 . A cquired hypothyroidism - E03.9 Plan: * Treatment: * Follow Up: 3 Months * Images: Billing Information: * Visit Code: 70826 Office Visit, Est Pt., Level 3. * Procedure Codes: * Electronic signature of Felix Cochran MD on 01/11/2025 at 08:58 AM EDT Sign off status: Pending * Provider: Felix Cochran M.D. Date: 05/05/2023 Generated for Jimmie galvez/Antony/eTransmitting on: 0 01/11/2025 08:58 AM EDT History and Physical Notes * Examination Category Sub-Category Detail Notes Category Not es General Examination HEENT: unremarkable Heart: RSR Lungs: clear to auscultatio n Abdomen: soft and nontender, no organomegaly or masses. Extremities: no leg edema General Appearance: NAD Skin: normal, no rash Neurologic Exam: Intact, gait normal Neck: supple, no lymphaden opathy. Oral cavity: no lesions, mucosa m oist and WNL, no erythema Peripheral pulses: normal Back: normal Genitalia: Chest: normal shape and exp ansion
--- OUTSIDE RECORDS SUMMARY | 2024-06-14 12:15 | XMS_ITS ---
Author Organization [facility] Address [address] [place] [id number] Care Team Providers Care Booth Usher Name Role Phone Felix Cochran Primary Care Provider Allergies Allergen (clinical drug ingredient) Drug/Non Drug Allergy documented on EMR Reaction Allergy Type Onset Date Status Penicillin Unknown Drug Allergy Active Results Component Value Reference Range Notes P-Comprehensive Metabolic Pa jane (CMP) Reviewed date:06/18/2024 12:24:11 PM Interpretation:gluc 102, alk phos 173 Performing Lab: Notes/Report: Test performed by [email or web address] , [address], [place] [address] Darwin Torrez MD, Appeals Analyst CLIA: [id number] Sodium 136 135-145 mmol/L Potassium 4.0 3.5-5.3 mmol/L Chloride 102 97-108 mmol/L CO2 22 22-32 mmol/L Glucose 102 65-99 mg/dL BUN 18 8-23 mg/dL Creatinine 0.81 0.70-1.30 mg/dL Calcium 9.0 8.6-10.4 mg/dL eGFR by Creatinine 98 >59 mL/min/1.73m2 Protein 6.9 6.0-8.3 g/dL Albumin 4.2 3.5-5.3 g/dL Alkaline Phosphatase 173 40-129 IU/L ALT (SGPT) 21 <5-55 IU/L AST (SGOT) 26 <5-46 IU/L Bilirubin, Total <0.2 <0.2-1.2 mg/dL A/G Ratio 1.6 1.1-2.5 REASON FOR VISIT 3 month Medications Medication SIG (Take, Route, Frequency, Duration) Notes Start Date End Date Status Ritalin 10 MG [address] omach Orally Twice a day 05/28/2024 Active Memantine HCl 10 MG 1 tab(s) orally 2 ti mes a day; Duration: 90 days Active Galantamine Hydrobromide 4 MG TAKE ONE TABLET BY MOUTH TWICE A DAY; Duration: 90 Active buPROPion HCl ER (SR) 150 MG TAKE ONE TABLET BY MOUTH EVERY MORNING; Duration: 90 Active Rosuvastatin Calcium 40 MG TAKE 1 TABLET BY MOUTH AT BEDTIME; Duration: 30 Active Align 4 MG as directed Orally 06/09/2023 Active Betamethasone Dipropionate 0.05 % 1 application Externally Once a day 06/09/2023 Active Levothyroxine Sodium 75 MCG 1 tablet in the morning on an empty stomach Orally Once a day; Duration: 90 days Active Doxazosin Mesylate 2 MG 1 tab(s) orally once a day; Duration: 90 days Active Omeprazole 40 MG 1 cap(s) Orally once daily; Duration: 90 days Active Fish Oil 500 MG 1 cap(s) orally once daily Active Melatonin 5 MG 1 CAP(S) Orally ONCE A DAY (AT BEDTIME) Active SAMe 400 MG as directed Orally T wo times a day Active Fiber Choice 1 TABS P.O. Q DAY Active Multivitamin - 1 tab(s) orally once a day Active Creon 08125-223575 UNIT as directed Oral ly with meals Active Mesalamine 400 MG 3 capsule Orally two times a day Active Vitamin C 1000 MG 1 tablet Orally Once a day; Duration: 30 day(s) Active OXcarbazepine 300 MG 1 & 1/2tablet Orall y Twice a day Active Vital Signs Weight 169.4 lbs 06/14/2024 Blood pressure systolic 130 mm Hg 06/14/19 25 Blood pressure diastolic 80 mm Hg 025 Heart Rate 66 /min 06/14/2024 Height 66.25 in 06/14/2024 BMI 27.13 kg/m2 06/14/2024 Encounters Encounter Location Date Provider Diagnosis [facility] [address] [place] [id number] 06/14/2024 Felix Cochran Pure hypercholestero lemia E78.00 ; 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 and Hearing deficit, bilateral H91.93 Assessments Encounter Date Diagnosis (ICD Code) Assessment Notes Treatment Notes Treatment Clinical Notes Section Notes 06/14/2024 Pure hypercholesterolemia (ICD-10 - E78.00) 06/14/2024 Organic affective disorder (ICD-10 - F06.30) 06/14/2024 Hearing deficit, bilateral (ICD-10 - H91.93) Plan Of Treatment Next Appt Details Follow Up: 3 Months, Reason: Provider Name:Felix Batista er, 02/25/2025 11:00:00 AM, [address], [address], [place], [id number], Progress Notes * YESIMERLYN GENODOB:1960 (64 yo M)Acc No.[id number]:06/14/2024 Progress Notes Patient: Tonja VILLAREAL MERLYN ISELA Provider: Felix Cochran M.D. :1960 A ge:63 Y S ex:Male Date:06/14/2024 Address:[address] [place] [address] , [place], [id number] Subjective: * Chief Complaints: * 1 . 3 month. * HPI: C ardiology: The pt is here for a check up. Pt states he is doing good and denies any new concerns. Pt is not fasting. Pt states he is scheduled for a colonoscopy next month. Denies : Chest Pain. D enies : Short of Breath. D enies : Dizziness. D enies : Palpitations. * ROS: D ERMATOLOGY: no R jaskaran. n o H lux. G ASTROENTEROLOGY: no N ausea. n o V omiting. n o D iarrhea.? U ROLOGY: no D ifficulty urinating. n o B lood in urine. * Medical History: S eizures, Hyperlipidemia, Post remote head trauma, Overactive bladder. * Surgical History: B rain 09/1988, Appendectomy , colonoscopy with polypectomy, Dr. Mueller 05/2010, Cochlear implant, [facility] 06/2019. * Family History: F ather: . [...] Frequency: ,Years: , Determination:. * Medications: T galileo Guzman [id number] UNIT Capsule Delayed Release Particles as directed Orally with meals , Taking Mesalamine 400 MG Capsule Delayed Release 3 capsule Orally two times a day , Taking Vitamin C 1000 MG Tablet [...] application Externally Once a day , Taking Levothyroxine Sodium 75 MCG Tablet 1 tablet in the morning on an empty stomach Orally Once a day , Taking Doxazosin Mesylate 2 MG Tablet 1 tab(s) orally once a day , Taking Omeprazole 40 MG Capsule Delayed Release 1 cap(s) Orally once daily , Taking Memantine HCl 10 MG Tablet 1 tab(s) orally 2 times a day , Taking Galantamine Hydrobromide 4 MG Tablet TAKE ONE TABLET BY MOUTH TWICE A DAY , Taking buPROPion HCl ER (SR) 150 MG Tablet Extended Release 12 Hour TAKE ONE TABLET BY MOUTH EVERY MORNING , Taking Rosuvastatin Calcium 40 MG Tablet TAKE 1 TABLET BY MOUTH AT BEDTIME , Taking Ritalin 10 MG Tablet 1 tablet on empty stomach Orally Twice a day , Medication List reviewed and reconciled with the patient * Allergies: P enicillin. Objective: * Vitals: W t:169.4, Temp:98.1, BP:130/80, HR:66, Nurse:ISABELA, Ht: 66.25, BMI:27.13. * Examination: G eneral Examination: General Appearance: [...] affective disorder - F06.30 (Primary) 2 . P ure hypercholesterolemia - E78.00 3 . H earing deficit, bilateral - H91.93 Plan: * Treatment: Value Reference Range A /G Ratio 1.6 1.1-2.5 - * A lbumin 4.2 3.5-5.3 - g/dL * A lkaline Phosphatase 173 H 40-129 - IU/L * A LT (SGPT) 21 <5-55 - IU/L * A ST (SGOT) 26 <5-46 - IU/L * B ilirubin, Total <0.2 <0.2-1.2 - mg/dL * B UN 18 8-23 - mg/dL * C alcium 9.0 8.6-10.4 - mg/dL * C hloride 102 97-108 - mmol/L * C O2 22 22-32 - mmol/L * C reatinine 0.81 0.70-1.30 - mg/dL * G lucose 102 H 65-99 - mg/dL * P otassium 4.0 3.5-5.3 - mmol/L * S odium 136 135-145 - mmol/L * P rotein 6.9 6.0-8.3 - g/dL * e GFR by Creatinine 98 >59 - mL/min/1.73m2 * Aby Velazquez 06/18/2024 12:24: 09 PM > See phone encounter * Procedure Codes: 3 075F SYST BP GE 130 - 139MM HG, 3079F DIAST BP 80-89 MM HG * Follow Up: 3 Months * Images: Billing Information: * Visit Code: 70068 Office Visit, Est Pt., Level 4. * Procedure Codes: 3075F SYST BP GE 130 - 139MM HG. 3079F DIAST BP 80-89 MM HG. * Electronic signature of Felix Cochran MD on 01/11/2025 at 08:55 AM EDT Sign off status: Pending * Provider: Felix Cochran M.D. Date: 0 06/14/2024 Generated for Iraidai ng/Faaarong/eTransmitting on: 0 01/11/2025 08:55 AM EDT History and Physical Notes * HPI (History of Present Illness) Category Sub-Category Detail Notes Category Not es Cardiology Short of Breath Chest Pain Palpitations Dizziness Examination Category Sub-Category Detail Notes Category Not [...]
--- OUTSIDE RECORDS SUMMARY | 2024-09-14 06:15 | XMS_ITS ---
Author Organization [facility] Address [address] [facility] [address] [place] [id number] Care Team Providers Care Belting And Webbing Inspector Name Role Phone Felix Cochran Primary Care Provider [phone] Allergies Allergen (clinical drug ingredient) Drug/Non Drug Allergy documented on EMR Reaction Allergy Type Onset Date Status Penicillin Unknown Drug Allergy Active REASON FOR VISIT 3 mo ck up, Needs labs with PSA Medications Medication SIG (Take, Route, Frequency, Duration) Notes Start Date End Date Status Doxazosin Mesylate 2 MG TAKE ONE TABLET BY MOUTH EVERY DAY; Duration: 90 Active buPROPion HCl ER (SR) 150 MG TAKE ONE TABLET BY MOUTH EVERY MORNING; Duration: 90 Active Ritalin 10 MG [address] omach Orally Twice a day; Duration: 30 days 08/31/2024 Active Rosuvastatin Calcium 40 MG TAKE 1 TABLET BY MOUTH AT BEDTIME; Duration: 30 Active Galantamine Hydrobromide 4 MG TAKE ONE TABLET BY MOUTH TWICE A DAY; Duration: 90 Active Memantine HCl 10 MG 1 tab(s) orally 2 ti mes a day; Duration: 90 days Active Omeprazole 40 MG 1 cap(s) Orally once daily; Duration: 90 days Active Align 4 MG as directed Orally 06/09/2023 Active Levothyroxine Sodium 75 MCG 1 tablet in the morning on an empty stomach Orally Once a day; Duration: 90 days Active Betamethasone Dipropionate 0.05 % 1 application Externally Once a day 06/09/2023 Active Fiber Choice 1 TABS P.O. Q DAY Active SAMe 400 MG as directed Orally T wo times a day Active Fish Oil 500 MG 1 cap(s) orally once daily Active Multivitamin - 1 tab(s) orally once a day Active Melatonin 5 MG 1 CAP(S) Orally ONCE A DAY (AT BEDTIME) Active Vitamin C 1000 MG 1 tablet Orally Once a day; Duration: 30 day(s) Active Mesalamine 400 MG 3 capsule Orally two times a day Active OXcarbazepine 300 MG 1 & 1/2tablet Orall y Twice a day Active Creon [id number] UNIT as directed Oral ly with meals Active Encounters Encounter Location Date Provider Diagnosis [facility] [address] [facility] [address] [facility] [address] [place], [place] [id number] 09/14/2024 Felix Cochran 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 ; Acquired hypothyroidism E03.9 and Prostate cancer C61 Assessments Encounter Date Diagnosis (ICD Code) Assessment Notes Treatment Notes Treatment Clinical Notes Section Notes 09/14/2024 Organic affective disorder (ICD-10 - F06.30) continue Rx 09/14/2024 Acquired hypothyroidism (ICD-10 - E03.9) 09/14/2024 Prostate cancer (ICD-10 - C61) Plan Of Treatment Treatment Notes Assessment Notes Organic affective disorder continue Rx Next Appt Details Follow Up: 3 Months, Reason: Provider Name:Felix Batista er, 02/25/2025 11:00:00 AM, [address] [facility] [address] [facility], [address], [place], [place], [id number], Progress Notes * MERLYN KEY GENODOB:1960 (64 yo M)Acc No.[id number]:09/14/2024 Progress Notes Patient: MERLYN SILVA ISELA Provider: Felix Cochran M.D. :1960 A ge:63 Y S ex:Male Date:09/14/2024 Address:[address] [place], [id number] Subjective: * Chief Complaints: * 1 . 3 mo ck up. 2. Needs labs with PSA. * HPI: H PI: The pt is here today for a check up. Pt states he is doing good and denies any new concerns. Pt is not fasting. M brigitte Reproductive: Sees Dr. Kinsey in September regarding prostate cancer. * ROS: D ERMATOLOGY: no R jaskaran. [...] with polypectomy, Dr. Mueller 05/2010, Cochlear implant, [facility] 06/2019, Colonoscopy with Dr. Mueller 07/2021. * Family History: F ather: . M other: alive. 2 brother(s) , 5 sister(s) . 1 son(s) , 1 daughter(s) . . * Social History: C URRENT TOBACCO USE S moking Status: Patient does NOT smoke. C affeine: yes, frequency:. Marital Status: . Past smoking status: yes, PPD: occasional , years: ,determination:. Alcohol: socially, Type: , Frequency: ,Years: , Determination:. * Medications: T gailleo Guzman [id number] UNIT Capsule Delayed Release Particles as directed [...] stomach Orally Once a day , Taking Omeprazole 40 [...] TABLET BY MOUTH EVERY MORNING , Taking Doxazosin Mesylate 2 MG Tablet TAKE ONE TABLET BY MOUTH EVERY DAY , Taking Rosuvastatin Calcium 40 MG Tablet TAKE 1 TABLET BY MOUTH AT BEDTIME , Taking Ritalin 10 MG Tablet 1 tablet on empty stomach Orally Twice a day , Medication List reviewed and reconciled with the patient * Allergies: P enicillin. Objective: * Vitals: * Examination: G eneral Examination: General Appearance: [...] 1. O rganic affective disorder - F06.30 2 . A cquired hypothyroidism - E03.9 3 . P rostate cancer - C61 Plan: * Treatment: * Procedure Codes: 1 036F TOBACCO NON-USER * Follow Up: 3 Months * Images: Billing Information: * Visit Code: 55479 Office Visit, Est Pt., Level 3. * Procedure Codes: 1036F TOBACCO NON-USER. * Electronic signature of Felix Cochran MD on 01/11/2025 at 08:59 AM EDT Sign off status: Pending * Provider: Felix Cochran M.D. Date: 09/14/2024 Generated for Jimmie galvez/Antony/Allenitting on: 0 01/11/2025 08:59 AM EDT History and Physical Notes * HPI (History of Present Illness) Category Sub-Category Detail Notes Category Not es Male Reproductive Sees Dr. Arthur valentino in September regarding prostate cancer Examination Category Sub-Category Detail Notes Category Not [...]
--- OUTSIDE RECORDS SUMMARY | 2024-11-19 10:20 | XMS_ITS ---
Author Organization [facility] Address [address] [place] [id number] Care Team Providers Care Aircraft Systems Technician Name Role Phone Felix Cochran Primary Care Provider [phone] Allergies Allergen (clinical drug ingredient) Drug/Non Drug Allergy documented on EMR Reaction Allergy Type Onset Date Status Penicillin Unknown Drug Allergy Active Reason For Referral Reason oncychogryposis/onyc homycosis Diagnosis 1 Onychomycosis (B35.1 ) Referral Organization [facility] Referring Provider First Name Felix Neely Referring Provider Last Name Dimas Referring Provider Speciality Family Pra ctice Referred Provider Stephanie Calderon Referred Provider Specialty Podiatry General Notes Ligia Meehan 2024 03:08:07 PM > fax[facility] to [facility] PodiatryShefali Brynn 11/23/2024 10:48:44 AM > spoke to Randy who said it was not received; resent fax Referral Priority Routine REASON FOR VISIT Issues w/ Feet, Referral to Podiatry Medications Medication SIG (Take, Route, Frequency, Duration) Notes Start Date End Date Status Galantamine Hydrobromide 4 MG TAKE ONE TABLET BY MOUTH TWICE A DAY; Duration: 90 days Active Omeprazole 40 MG TAKE ONE CAPSULE BY MOUTH EVERY DAY; Duration: 90 Active Ritalin 10 MG [address] omach Orally Twice a day; Duration: 30 days 11/05/2024 Active Rosuvastatin Calcium 40 MG 1 tablet Oral ly Once a day; Duration: 90 days Active Memantine HCl 10 MG TAKE ONE TABLET BY M OUTH TWICE A DAY; Duration: 90 Active buPROPion HCl ER (SR) 150 MG TAKE ONE TABLET BY MOUTH EVERY MORNING; Duration: 90 days Active Levothyroxine Sodium 75 MCG 1 tablet in the morning on an empty stomach Orally Once a day; Duration: 90 days Active Doxazosin Mesylate 2 MG TAKE ONE TABLET BY MOUTH EVERY DAY; Duration: 90 Active Betamethasone Dipropionate 0.05 % 1 application Externally Once a day 06/09/2023 Active Align 4 MG as directed Orally 06/09/2023 Active SAMe 400 MG as directed Orally T wo times a day Active Melatonin 5 MG 1 CAP(S) Orally ONCE A DAY (AT BEDTIME) Active Fish Oil 500 MG 1 cap(s) orally once daily Active Multivitamin - 1 tab(s) orally once a day Active Fiber Choice 1 TABS P.O. Q DAY Active OXcarbazepine 300 MG 1 & 1/2tablet Orall y Twice a day Active Vitamin C 1000 MG 1 tablet Orally Once a day; Duration: 30 day(s) Active Mesalamine 400 MG 3 capsule Orally two times a day Active Creon [id number] UNIT as directed Oral ly with meals Active Vital Signs Weight 173.6 lbs 11/19/2024 Blood pressure systolic 130 mm Hg 11/20/19 25 Blood pressure diastolic 72 mm Hg 025 Heart Rate 69 /min 11/19/2024 Height 66.25 in 11/19/2024 BMI 27.81 kg/m2 11/19/2024 Encounters Encounter Location Date Provider Diagnosis [facility] [address], [place] [id number] 11/19/2024 Felix Cochran Onychomycosis B35.1 ; Onychogryposis of toenail L60.2 and BMI 27.0-27.9,adult Z68.27 Assessments Encounter Date Diagnosis (ICD Code) Assessment Notes Treatment Notes Treatment Clinical Notes Section Notes 11/19/2024 Onychomycosis (ICD-10 - B35.1) 11/19/2024 Onychogryposis of toenail (ICD-10 - L60.2) 11/19/2024 BMI 27.0-27.9,adult (ICD-10 - Z68.27) Plan Of Treatment Referrals Referral Date Details 11/19/2024 11/19/2024, oncychog ryposis/onychomycosis, Stephanie Calderon Next Appt Details Follow Up: 2 Months, Reason: Provider Name:Felix Batista er, 02/25/2025 11:00:00 AM, [address], [address], [place], [id number], Progress Notes * MERLYN KEY GENODOB:1960 (64 yo M)Acc No.[id number]:11/19/2024 Progress Notes Patient: MERLYN SILVAO Provider: Felix Cochran M.D. :1960 A ge:63 Y S ex:Male Date:11/19/2024 Address:[address] [place] [address] , [place], [id number] Subjective: * Chief Complaints: * 1 . Issues w/ Feet, Referral to Podiatry. * HPI: A nkle/Foot: The pt is here today with c/o nail fungus in both great toenails. Pt states he would like a referral to podiatry. * ROS: D ERMATOLOGY: no R jaskaran. [...] 05/2010, Cochlear implant, [facility] 06/2019, Colonoscopy with Dr. Mueller 07/2021. * [...] , Determination:. * Medications: T galileo Guzman [id number] UNIT Capsule Delayed Release Particles as directed [...] application Externally Once a day , Taking Doxazosin Mesylate 2 MG Tablet TAKE ONE TABLET BY MOUTH EVERY DAY , Taking Levothyroxine Sodium 75 MCG Tablet 1 tablet in the morning on an empty stomach Orally Once a day , Taking buPROPion HCl ER (SR) 150 MG Tablet Extended Release 12 Hour TAKE ONE TABLET BY MOUTH EVERY MORNING , Taking Omeprazole 40 MG Capsule Delayed Release TAKE ONE CAPSULE BY MOUTH EVERY DAY , Taking Galantamine Hydrobromide 4 MG Tablet TAKE ONE TABLET BY MOUTH TWICE A DAY , Taking Memantine HCl 10 MG Tablet TAKE ONE TABLET BY MOUTH TWICE A DAY , Taking Rosuvastatin Calcium 40 MG Tablet 1 tablet Orally Once a day , Taking Ritalin 10 MG Tablet 1 tablet on empty stomach Orally Twice a day , Medication List reviewed and reconciled with the patient * Allergies: P enicillin. Objective: * Vitals: W t: 173.6, Temp: 98.0, BP: 130/72, HR: 69, Nurse: ISABELA, Ht: 66.25, BMI:27.81. * Examination: G eneral Examination: General Appearance: [...] ack: normal. E xtremities: n o leg edema, onychogryposis/mycosis of mainly great toenails. Keratosis peronychial areas. Assessment: * Assessment: 1. O nychomycosis - B35.1 (Primary) 2 . O nychogryposis of toenail - L60.2? 3. B NC 27.0-27.9,adult - Z68.27 Plan: * Treatment: * Procedure Codes: 1 036F TOBACCO NON-USER, 3075F SYST BP GE 130 - 139MM HG, 3078F DIAST BP < 80 MM HG * Follow Up: 2 Months * Images: Billing Information: * Visit Code: 53916 Office Visit, Est Pt., Level 3. * Procedure Codes: 1036F TOBACCO NON-USER. 3075F SYST BP GE 130 - 139MM HG. 3078F DIAST BP < 80 MM HG. * Electronic signature of Felix Cochran MD on 01/11/2025 at 08:55 AM EDT Sign off status: Pending * Provider: Felix Cochran M.D. Date: 0 11/19/2024 Generated for Jimmie galvez/Antony/eTransmitting on: 0 01/11/2025 08:55 AM EDT History and Physical Notes * Examination Category Sub-Category Detail Notes Category Not es General Examination HEENT: unremarkable Heart: RSR Lungs: clear to auscultatio n Abdomen: soft and nontender, no organomegaly or masses. Extremities: no leg edema, onycho gryposis/mycosis of mainly great toenails. Keratosis peronychial areas General Appearance: NAD Skin: normal, no rash Neurologic Exam: Intact, gait normal Neck: supple, no lymphaden opathy. Oral cavity: no lesions, mucosa m oist and WNL, no erythema Peripheral pulses: normal Back: normal Genitalia: Chest: normal shape and exp ansion Consultation Request Notes Referral Date Referring Provider Referred Provider Not es 11/19/2024 Felix Cochran Sofie oncychogr yposis/onychomycosis
--- NOTE | 2025-01-11 08:30 | US_ITS ---
FINAL REPORT CLINICAL HISTORY: Evaluation of Circulatory Disturbances, Claudication, DM, HLD, HTN, Leg pain at rest COMPARISON: None FINDINGS: ANKLE-BRACHIAL PRESSURE INDICES Pressure indices are as follows: RIGHT LOWER EXTREMITY: Ankle-brachial pressure index: 1.2 Comments: Normal LEFT LOWER EXTREMITY: Ankle-brachial pressure index: 1.2 Comments: Normal CONCLUSION: No evidence of significant obstructive peripheral vascular disease of the lower extremities Reviewed, Interpreted and Dictated by Anika Alex MD Transcribed by Ceci Hemphill Authenticated and . [facility]
--- OUTSIDE RECORDS SUMMARY | 2025-01-11 08:56 | XMS_ITS | Clinical Summary ---
Author Organization [facility] Address [address] [place] [address] Care Team Providers Care Alterations Supervisor Name Role Phone Santhosh Cochran MD Primary Care Provider [phone] Allergies Active Allergy Reactions Criticality Noted Date Comments Penicillins Rash Low 10/28/2021 Medications buPROPion XL (WELLBUTRIN XL) 150 MG 24 hr tablet 10/07/2021 Active doxazosin (CARDURA) 2 MG tablet 08/23/2021 Active galantamine (RAZADYNE) 4 MG tablet 10/07/2021 Active levothyroxine (SYNTHROID, LEVOTHROID) 50 MCG tablet 10/27/2021 Active memantine (NAMENDA) 10 MG tablet 07/21/2021 Active methylphenidate (RITALIN) 20 MG tablet 09/25/2021 Active omeprazole (priLOSEC) 40 MG capsule 08/21/2021 Active OXcarbazepine (TRILEPTAL) 300 MG tablet 08/18/2021 Active pravastatin (PRAVACHOL) 80 MG tablet 10/07/2021 Active melatonin 5 MG tablet tablet Take 5 mg by mouth. Active Negkv-V-Hqjxnvn sidase (BEANO PO) Take by mouth. Active multivitamin with minerals (MULTIVITAMIN ADULT PO) Take 1 tablet by mouth Daily. Active Cholecalciferol (Vitamin D-3) 25 MCG (1000 UT) capsule Take by mouth. Active sildenafil (VIAGRA) 50 MG tablet Take 50 mg by mouth Daily As Needed for Erectile Dysfunction. Active [place]-3 Fatty Acids (fish oil) 1000 MG capsule capsule Take by mouth Daily With Breakfast. Active vitamin C (ASCORBIC ACID) 250 MG tablet Take 250 mg by mouth Daily. Active Active Problems Problem Noted Date Diagnosed Date Prostate cancer Cancer Staging:Clinical stage from 09/11/2021:Stage IIIC(cT2b, cN0, cM0, PSA: 9.4, Grade Group: 5) - Signed by Chip Price MD on 10/28/2021 Family History Medical History Relation Name Comments Colon cancer Brother Lung cancer Brother Heart disease Father Diabetes Sister Relation Name Status Comments Brother Alive Father Mother Alive Sister Social History Tobacco Use Types Packs/Day Years Used Date Smoking Tobacco: Former Cigarettes Q uit: 1989 Tobacco Cessation:Counseling Given: Not Answered Alcohol Use Standard Drinks/Week Comments Yes 2 (1 standard drink = 0.6 oz pur e alcohol) 2 per day x 35 years Abuse Screen Answer Date Recorded Unsafe at Home or Work/School Not on file Feels Threatened by Someone? Not on file Does Anyone Keep You from Co ntacting Others or Doint Things Outside the Home? Not on file 01/28/2023 Physical Sign of Abuse Present Not on file 1 Housing Stability Answer Date Recorded Current Living Arrangements Not on file 01/16 Potentially Unsafe Housing Conditions Not on lauri e 01/28/2023 Family and Community Support Answer Nixon e Recorded Help with Day-to-Day Activities Not on file 01/28/2023 Lonely or Isolated Not on file 01/28/2023 Employment Answer Date Recorded Do you want help finding or keeping work or a letty b? Not on file 01/28/2023 Disabilities Answer Date Recorded Concentrating, Remembering, or Making Decisions Difficulty Not on file 01/28/2023 Doing Errands Independently Difficulty Not on fi le 01/28/2023 Education Answer Date Recorded Help with school or training? Not on file Preferred Language Not on file 01/28/2023 Sex and Gender Information Value Date Recorded Sex Assigned at Not on file Legal Sex Male 12:55 PM EDT Gender Identity Not on file Sexual Orientation Not on file Last Filed Vital Signs Vital Sign Reading Time Taken Comments Blood Pressure 135/86 08/29/2023 1:33 PM EDT Pulse 73 08/29/2023 1:33 PM EDT Temperature 36.5 C (97.7 F) 08/29/2023 1:33 PM EDT Respiratory Rate 16 08/29/2023 1:33 PM EDT Oxygen Saturation 98% 08/29/2023 1:33 PM EDT Inhaled Oxygen Concentration - - Weight 75.6 kg (166 lb 11.2 oz) 08/29/2023 1:33 PM EDT Height 167.6 cm (5' 6 ) 10/28/2021 8:38 AM EDT Body Mass Index 26.91 10/28/2021 8:38 AM EDT Plan of Treatment Health Maintenance Due Date Last Done Comments Pneumococcal Vaccine 50+ (1 of 2 - PCV) 12/29/1978 TDAP/TD VACCINES (1 - Tdap) 12/29/1978 ZOSTER VACCINE (1 of 2) 12/29/1978 COLOGUARD 12/29/2004 COLON CANCER SCREENING 5 YEA R SIGMOIDOSCOPY 12/29/2004 COLONOSCOPY 12/29/2004 COLORECTAL CANCER SCREENING 12/29/2004 CT COLONOGRAPHY 12/29/2004 FECAL OCCULT BLOOD TEST 12/29/2004 FIT Testing (1 year) 12/29/2004 ANNUAL PHYSICAL 10/23/2021 HEPATITIS C SCREENING 10/23/2021 INFLUENZA VACCINE 11/16/2024 02/10/2021, 02/09/2017 COVID-19 Vaccine ( season) 2024 04/05/2021, 07/12/2020, 06/19/2020 AAA SCREEN ONCE 12/29/2024 Insurance [facility] PPO Care Teams Alterations Supervisor Relationship Specialty Start Date End Date Santhosh Cochran MD [address] [place] [id number] PCP - General Family Medicine 10/28/21
--- OUTSIDE RECORDS SUMMARY | 2025-01-11 08:56 | XMS_ITS ---
Author Organization [facility] Address [address] [place] [address] Care Team Providers Care Homogenizer Operator Name Role Phone Santhosh Cochran MD Primary Care Provider [phone] Active Problems Problem Noted Date Diagnosed Date Prostate cancer Cancer Staging:Clinical stage from 09/11/2021:Stage IIIC(cT2b, cN0, cM0, PSA: 9.4, Grade Group: 5) - Signed by Chip Price MD on 10/28/2021 Current Treatment and Therapy Plans No current plan information found. Past Treatment and Therapy Plans No past plan information found. Treatment Summaries Prostate cancer* Images from the original note were not included. Prostate Cancer Survivorship Plan General Information Patient name Wendy Iqbal Date of 1960 Phone Email to@[email or web address] Cancer Treatment Team Patient Care Team: Zeke Kinsey MD as Referring Physician (Urology) Chip Price MD as Consulting Physician (Radiation Oncology) René Mueller MD as Consulting Physician (Gastroenterology) Provider Phone numbers Care Team Provider: Zeke Kinsey MD, ([phone]) Care Team Provider: Chip Price MD, ([phone]) Care Team Provider: René Mueller MD, ([phone]) Care Team Provider: Maegan Ocasio MD, ([phone]) Care Team Provider: Matt Lopez MD, ([phone]) Post Treatment Care Team Primary Care Physician Santhosh Cochran MD [phone] [facility] [address] [place] [address] Background Information Medical history Past Medical History: Deaf Disease of thyroid gland GERD (gastroesophageal reflux disease) Hypertension Prostate cancer (HCC) Seizures (HCC) Surgical history Past Surgical History: APPENDECTOMY BRAIN SURGERY removal of epidural hematoma X1 COLONOSCOPY EAR MASTOIDECTOMY W/ COCHLEAR IMPLANT W/ LANDMARK HERNIA REPAIR PROSTATE BIOPSY PROSTATE FIDUCIAL MARKER PLACEMENT SINUS SURGERY VASECTOMY Tobacco use Social History Tobacco Use Smoking Status Former Packs/day: 0.50 Types: Cigarettes Quit date: 1989 Years since quittin.8 Smokeless Tobacco Not on file Family oncology history Cancer-related family history includes Colon cancer in his brother; Lung cancer in his brother. Oncology Information Oncology/Hematology History Prostate cancer (HCC) 09/11/2021 Cancer Staged Staging form: Prostate, AJCC 8th Edition - Clinical stage from 09/11/2021: Stage IIIC (cT2b, cN0, cM0, PSA: 9.4, Grade Group: 5) - Signed by Chip Price MD on 10/28/2021 10/28/2021 Initial Diagnosis Prostate cancer (HCC) 12/09/2021 - 01/18/2022 Radiation Radiation OncologyTreatment Course: Wendy Iqbal received 7000 cGy in 28 fractions to prostate gland via External Beam Radiation - EBRT. Complications during Therapy: No concerns stated Modification to Treatment Plan: No Modifications Lifetime Dose Tracking No doses have been documented on this patient for the following tracked chemicals: Doxorubicin, Epirubicin, Idarubicin, Daunorubicin, Mitoxantrone, Bleomycin, Mitomycin, Doxorubicin Liposomal [No matching plan found] Persistent Treatment-Associated Adverse Effects at Completion of Therapy It is important to recognize that not every person experiences the following adverse events after treatment. You may not have any of these issues, a few or many adverse effects. Experiences are highly variable. Please discuss any adverse effects of cancer treatment with your cancer care team. After Surgical Therapy No Surgery Performed After Chemotherapy N/A After Radiation Therapy After External Beam Radiation Therapy or Cyberknife Radiation therapy can cause early and late side effects. Early side effects are those that happen during or shortly after treatment and are usually gone within a few weeks after treatment ends. Late side effects may take months or years to develop. The most common early side effects are fatigue (feeling tired) and skin changes. Other early side effects are usually related to the area being treated. If you continue to have some skin problems after treatment ends, be gentle with the skin in the treatment area until all signs of irritation are gone and continue to care for your skin as your doctors and nurses have advised. If you continue to have fatigue, you may need to plan your activities to maximize energy, get extra rest while your bodyis still recovering and follow other instructions from your doctors and nurses such as exercise andactivity. meterman effects of radiation therapy vary greatly depending on the areas included in the field ofradiation and the radiation techniques that were used. Normal tissue in the body that is close to the prostate such as the bowel, rectum and bladder may be exposed to some radiation during treatment. Exposure of the bowel to radiation may result in bowel changes such as diarrhea or frequent loose stools. Ulceration and bleeding may also occur. Any bright red blood or black, tarry stools or abnormal passage of stool should be reported to your doctor. Stay hydrated by drinking water and fluids with electrolytes. Chronic diarrhea may put you at risk for weight loss and malnutrition. Talk to yourdoctor or nurse - there may medications and special instructions that can help. There are also other specialists like gastroenterologists and dietitians who can help. If the lymph nodes were in the radiation field, there may be an increased risk of developing lymphedema. Lymphedema is a condition in which fluid collects and may cause swelling. Exposure of the bladder to radiation may result in bladder scarring and may increase the risk of urinary tract infections. Blood in the urine or signs of urinary tract infections such as pain in the bladder, groin, lower abdomen or lower back, frequent urination, bladder spasm, cloudy, dark and/or foul-smelling urine, frequent urge to urinate and fever should be reported to your doctor. Radiation to the pelvis may cause erectile dysfunction (inability to get and keep an erection firm enough for sexual penetration). If there was erectile dysfunction before treatment and if there are other risk factors for erectile dysfunction (such as advanced age), the risk may be higher. Each man???s situation is different. Medications to treat erectile dysfunction may be given. There are also other treatments and devices that can help. Having trouble with erections is a very personal concern. It???s important to communicate with your partner and to talk with your doctor or nurse about it. Treatments and referrals to other specialists may help. In rare cases, radiation therapy can increase the risk of a second cancer. Other N/A Care of your Venous Access Device No Venous Access Device currently in place General After Cancer Treatment It is not uncommon for cancer to impact other areas of your life such as relationships, work and mental health. If you develop financial concerns, resources are sometimes available to assist in theseareas. Depression and anxiety can present either during or after cancer diagnosis and treatment. Itis important to discuss with your physician any of these concerns so these resources can be made available to you. General Cancer Support & Resources [facility] [address], [address] [place] [address] Med Onc: Business Intelligence Analyst Onc: Inspecting Supervisor: Megan Sneed - Psychiatric Nurse Practitioner: María Bauer APRN - Kick It! (A free smoking cessation program) Financial Counselor and Contact Information: [facility] Financial Counseling [phone] Ivory Carver Contact Information: Nuvia Hameed - Local Cancer Support Group and Contact Information: Isaac Cancer Budviraj: This support group is open to anyone that has been diagnosed with cancer of any type. Meets at 6:30pm on the last Tuesday of each month. Location: [facility]; [address] [place] [address]. For more information call Ashley Astudillo @ . Prostate Cancer Support & Resources Local Resources [facility] Prostate Support Group: The mission of [employer] [facility] is to provide hope and improve the lives of of those affected by prostate cancer through support, education, and advocacy/ awareness. The group meets the of each month at 6:30 p.m. [address] [facility] [place], [place] [id number] Surveillance How Frequent? Medical Oncology visits 1 month, 6 months later, 1 year later (Dr. Price) Lab tests PSA ~3 months after radiation completion, then every 6 months until PSA reaches nba (PSA <0.5), then every 6-12 months (Dr. Kinsey) Imaging exams As clinically indicated Immunizations Influenza Herpes Zoster Pneumococcal Yearly Once As appropriate Tobacco Cessation The patient is not currently a tobacco user. Counseling given: Not Answered Monitor for ongoing toxicities: None Specified Call your doctor if you have any of these signs or symptoms New or worsening symptoms. Pain that is new, unrelieved or bothersome. Difficulty with your emotions, anxiety, and/or depression. Physical problems that affect your abilities in your daily life or those that are bothersome (for example, continued fatigue, trouble sleeping, sexual problems, or edema). Referrals provided There are no referral needs at this time. Self Care Plan Self Care Plan: What You Can Do to Stay Healthy after Treatment for Cancer Cancer treatments may increase your chance of developing other health problems years after you havecompleted treatment. The purpose of this self care plan is to inform you about what steps you can take to maintain good health after cancer treatment. Keep in mind that every person treated for cancer is different and that these recommendations are not intended to be a substitute for the advice of a doctor or other health neonatal intensive care unit nurse. Please use these recommendations to talk with your health care provider about an appropriate follow up care plan for you. Surveillance for Your Cancer Recommendation Frequency Comments Cancer surveillance visit with medical provider that is focused on detecting signs of recurrence ofyour cancer. For additional information, visit www.livestrong.org or www.cancer.net/patient/Survivorship Frequency depends on type and stage of cancer you had. (If you had a higher risk cancer, you may be seen more often). Your doctor has provided you with a personalized cancer treatment summary and survivorship care plan. If you need another copy, ask your doctor. General Cancer Screening for Men Cancer screening tests are designed to find cancer or pre-cancerous areas before there are any symptoms and, generally, when treatments are most successful. Various organizations have developed guidelines for cancer screening for men. While these guidelines vary slightly between different organizations, they cover the same basic screening tests for prostate and colorectal cancers. In addition, during routine health examinations (at any age) your health care provider may also evaluate for cancers of the skin, mouth and thyroid. Not all screening tests are right for everyone. Your personal and family cancer history, and/or the presence of a known genetic predisposition, can affect which tests are right for you, and at what age you begin them. Therefore, you should discuss these with your health care provider. Your care plan will also include a section on follow up care foryour type of cancer, and these recommendations override the general screening recommendations for that particular type of cancer in the general population. The [place] [employer] (ACS) recommends these screening guidelines for men: Recommendation Frequency Comments Colon and Rectal Cancer Screening For more information see the ACS document Colorectal Cancer: Early Detection. www.cancer.org/ssLINK/lngmnuokbu-prdzcb-wpaig-detection-michael Options for colon cancer screening can be divided into those that screen for both cancer and polyps, and those that just screen for cancer.Screening should begin at age 45 (unless you are considered high risk (see comments), using one of the following testing schedules: Tests that find polyps and cancer (Preferred over those that find cancer alone. If any of these tests are positive, a colonoscopy should be done.) Flexible sigmoidoscopy every five years, or Colonoscopy every 10 years, or Double-contrast barium enema every five years, or CT colonography (virtual colonoscopy) every five years Tests that primarily test for cancer Yearly fecal occult blood test (FOBT)*, or Yearly fecal immunochemical test (FIT) *, or Stool DNA test (sDNA), interval uncertain* * The multiple stool take-home test should be used. One test done by the doctor in the office is not adequate. A colonoscopy should be done if the test is positive. Talk with your doctor about your medical history, and what colorectal cancer screening test and schedule is best for you. Individuals at higher risk of colon cancer should have screening earlier and potentially more frequently. Those at higher risk of colon and rectal cancer: Individuals with a family history of colon or rectal cancer in a relative who was diagnosed before the age of 60 Individuals with a history of polyps Individuals with inflammatory bowel disease (Crohn's disease or ulcerative colitis) Individuals with a genetic predisposition to colon or rectal cancer, such as hereditary non-polyposis colon cancer (HNPCC) syndrome or familial adenomatous polyposis (FAP) syndrome Prostate Cancer Screening For more information, see the ACS Document Prostate Cancer Prevention and Early Detection: http://www.cancer.org/cancer/prostatecancer/moreinformation/prostatecancerearlyd etection/index Starting at age 50 (unless you are considered high risk ), men should talk to their doctor about the pros and cons of prostate cancer testing, and then decide if they want to be tested. Tests that can be used to detect for prostate cancer include Prostate-specific antigen (PSA) or digital rectal exam (CORA). ndividuals are considered higher risk if they are and/or have a family history of prostate cancer. Those who are considered high risk should have this talk at age 40 or 45. Testicular Screening For more information, see the ACS Document Testicular Cancer Detection: http://www.cancer.org/cancer/testicularcancer/detailedguide/nbyvpeevdn-qjmdak-ry tection Men of any age can develop testicular cancer; however, about half of all cases occur in men between the ages of20 and 34. A testicular self- exam is recommended monthly after a man has gone through puberty. In doing so, devon should look and feel for any hard lumps, rounded bumps, or any change in the size, shape, or consistency of his testicles. If something appears abnormal, see a health care provider for further evaluation. Sun Exposure and Skin Cancer Risk Skin cancer is the most commonly diagnosed type of cancer, and rates are on the rise. However, thisis one cancer that in most cases can be prevented or detected early. While you may hear that you need the sun to make vitamin D, in reality you only need a few minutes a day to do this. Exposure to ultraviolet (UV) rays, either by natural sunlight or tanning beds, can lead to skin cancer. In additio n, UV rays lead to other forms of skin damage, including wrinkles, loss of skin elasticity, dark patches (sometimes called age spots or liver spots), and pre- cancerous skin changes (such as dry, scaly, rough patches). Although dark- skinned people are less likely to develop skin cancer, they can anddo develop skin cancers, most often in areas that are not exposed to sun (on the soles of the feet,under nails, and genitals). You can do a lot to protect yourself from damaging UV rays and to detect skin cancer early. Start by practicing sun safety, including using a broad spectrum sunscreen (which protects against UVA and UVB rays) with an SPF of at least 30 every day, avoiding peak sun times (10 a.m. to 4 p.m., when therays are strongest) and wearing protective clothing such as hats, sunglasses and long- sleeved shirts. Examine your skin regularly so you become familiar with any moles or birthmarks. If a mole has changed in any way, you should have a health care provider examine the area. This includes a change in size, shape or color; the development of scaliness, bleeding, oozing, itchiness or pain; or the development of a sore that will not heal. If you have a lot of moles, it may be helpful to make note of moles using photographs or a mole map . For a guide to performing a skin exam, visit www.skincarephysicians.com/skincancernet/skin_examinations.html. Healthy Lifestyle For some cancer survivors, the experience is the motivation to making healthy lifestyle changes. Itmay seem insignificant, but these changes have been shown to reduce the risk of the cancer coming back or a new cancer developing. Below are some tips on adopting a healthier lifestyle. Maintaining ahealthy weight is important in cancer prevention, as is physical activity and eating a healthy diet. Strive to incorporate all three pieces of the puzzle: healthy weight, balanced diet and regular exercise. Recommendation Goal Comments Maintain a healthy weight. For more information, visit http://www.nhlbi.nih.gov/health/public/heart/obesity/lose_wt/index.htm www.win.niddk.nih.gov Call the [place] [employer] Talk to your health care team about what a healthy weight is for you, and take stepsto reach and maintain that weight. For many people reaching their ideal weight can be a challenge; however, losing even 5 to 10 poundscan lower blood pressure, blood sugar and cholesterol levels. Weigh yourself weekly to monitor for weight gain/loss Being overweight can increase your chance of your cancer coming back. Maintaining a healthy weight, physical activity and eating a healthy diet are all important in cancer prevention. Being overweight can increase your chance of having high blood pressure, high blood sugar and/or high cholesterol, which can lead to heart disease, diabetes and stroke. If you would like more information about your blood sugar, cholesterol or blood pressure, talk with your primary care provider. Eat a healthy diet, mostly from plant sources. For more information, visit http://www.choosemyplate.gov/food-groups/ Eat healthy, including plenty of fruits and vegetables daily. Drink more water, less soda and juice. Limit how much alcohol you drink (if you drink at all). Strive to have two- thirds of your plate be vegetables, fruits, whole grains and beans, while one- third or less should be an animal product. Choose fish and chicken and limit red meat and processed meats. Limit intake of alcohol to two drinks per day. Exercise. To learn more about recommendations for diet, activity and weight, visit AICR???s Guidelines for Survivors http://preventcancer.aicr.org/site/PageServer?pagename=patients_survivors_guidel flash ACS Eat Healthy and Get Active www.cancer.org/Healthy/EatHealthyGetActive/index Experts recommend at least 30 minutes of lefpaslf-yg-mgrfhdwh activity per day, five days a week. Research shows that exercise can help you control your weight, improve your energy level, and help you sleep at night. The christian is to find a physical activity you enjoy such as walking, dancing or gardening and do it regularly. If you have been inactivefor a while, start out slowly. You can start out by exercising 10 minutes a day several days a week. If you feel dizzy, short of breath, or have chest pain during exercise, stop exercising and talk with your primary care doctor. Do not use tobacco in any form. For more information, visit http://www.cdc.gov/tobacco/campaign/tips/ If you use tobacco, quit as soon as possible. Smoking is the most preventable cause of in the [place] If you would like more information, ask your doctor or you can call a national hotline at 5(963)-QUIT-NOW. Have regular check-ups by a healthcare professional. For more information about healthy screening tests for men visit the U.S. Department of Health and Human Services. http://www.womenshealth.gov/pzfbkgiyt-yzcub-gih-vaccines/inxrccspy-jqcar-gsx-men / For more information about adult vaccinations visit the CDC: http://www.cdc.gov/vaccines/recs/schedules/adult-schedule.htm Keep up-to-date on general health screening tests, including cholesterol, blood pressure and glucose (blood sugar) levels. Get an annual influenza vaccine (flu shot). Get vaccinated with the pneumococcal vaccine, which prevents a type of pneumonia, and re-vaccinatedas determined by your health care team. Don???t forget dental and eye health! The [place] [employer] recommends adults have their eyes examined every two years until age 60, then annually. People who wear glasses or correctivelenses or are at high risk for eye problems (i.e., diabetics, family history of eye disease) shouldbe seen more frequently. The [place] recommends adults see their dentist at least once a year. No information on file. No information on file.
--- OUTSIDE RECORDS SUMMARY | 2025-01-11 08:56 | XMS_ITS | Clinical Summary ---
Author Organization [facility] Address [address] [place] [address] Care Team Providers Care Air Twister Winder Name Role Phone Santhosh Cochran MD Primary Care Provider [phone] Family History Medical History Relation Name Comments Cardiac disorder Brother 1 Hypertension Brother 2 Cardiac disorder Sister 1 Hypertension Sister 2 Relation Name Status Comments Brother 1 Brother 2 Sister 1 Sister 2 Social History Tobacco Use Types Packs/Day Years Used Date Smoking Tobacco: Former Alcohol Use Standard Drinks/Week Comments Yes 0 (1 standard drink = 0.6 oz pure alcohol) Alcoholic Drinks/day: Social alcohol use Sex and Gender Information Value Date Recorded Sex Assigned at Not on file Legal Sex Male 8:47 PM EDT Gender Identity Not on file Sexual Orientation Not on file Last Filed Vital Signs Vital Sign Reading Time Taken Comments Blood Pressure 157/82 06/28/2019 10:48 AM EDT Pulse 75 06/28/2019 10:48 AM EDT Temperature - - Respiratory Rate - - Oxygen Saturation - - Inhaled Oxygen Concentration - - Weight 68.9 kg (152 lb 0.1 oz) 06/28/2019 10:48 AM EDT Height 167.6 cm (5' 6 ) 06/28/2019 10:48 AM EDT Body Mass Index 24.53 06/28/2019 10:48 AM EDT Plan of Treatment Health Maintenance Due Date Last Done Comments [facility]-Depression Screening 1960 [facility]-Hepatitis C Screening 1960 [facility]-/Child/Adol SDOH Screenings 1960 [facility]- SDOH Screenings 12/29/1977 [facility]-Adult SDOH Screenings 12/29/1977 [facility]-DTaP,Tdap,and Td Vaccine s (1 - Tdap) 12/29/1978 [facility]-Pneumococcal Vaccine: 50 + Years (1 of 2 - PCV) 12/29/1978 CT Colonography 12/29/2004 Colonoscopy 12/29/2004 FIT-DNA 12/29/2004 FIT 12/29/2004 FOBT 12/29/2004 Sigmoidoscopy 12/29/2004 [facility]-Colorectal Cancer Screening 12/29/2004 [facility]-Zoster Vaccines (1 of 2) 12/29/2009 [id number] Vaccine (4 - 2024- season) 2024 04/05/2021, 07/12/2020, 06/19/2020 [facility]-Influenza Vaccine (#1) 12/17/202401/24, 02/10/2021, 02/09/2017 [facility]-RSV Vaccine: 60+ Years o r (1 - 1-dose 75+ series) 12/29/2034 HPV Vaccines Aged Out No longer eligi ble based on patient's age to complete this topic [facility]-HIB Vaccines Aged Out No longer e ligible based on patient's age to complete this topic [facility]-Hepatitis A Vaccines Aged Out No longer eligible based on patient's age to complete this topic [facility]-IPV Vaccines Aged Out No longer e ligible based on patient's age to complete this topic [facility]-Rotavirus Vaccines Aged Out No lo nger eligible based on patient's age to complete this topic Insurance [employer] Care Teams Air Twister Winder Relationship Specialty Start Date End Date Santhosh Cochran MD [address] [facility] [address] [place] [address] PCP - General 08/29/20
--- OUTSIDE RECORDS SUMMARY | 2025-01-11 08:57 | XMS_ITS | Patient Health Record ---
Author Organization [facility] Address [address] [place] [id number] Care Team Providers Care Teletype Operator Name Role Phone Felix Cochran Primary Care Provider Hair [place] Unavailable [phone] Allergies Allergen (clinical drug ingredient) Drug/Non Drug [...] - 38 plat 219 100 - 400 P-Comprehensive Metabolic Pa jane (CMP) Reviewed date:06/18/2024 12:24:11 PM Interpretation:gluc 102, alk phos 173 Performing Lab: Notes/Report: Test performed by [facility], [employer] [facility] , [address], [place] [address] Drawin Torrez MD, Road Passenger Firer CLIA: [id number] Sodium 136 135-145 mmol/L Potassium 4.0 3.5-5.3 [...] <0.2 <0.2-1.2 mg/dL A/G Ratio 1.6 1.1-2.5 Medications Medication SIG (Take, Route, Frequency, Duration) Notes Start Date End Date Status SAMe 400 MG as directed Orally T wo times a day Active Galantamine Hydrobromide 4 MG TAKE ONE TABLET BY MOUTH TWICE A DAY; Duration: 90 days Active OXcarbazepine 300 MG 1 & 1/2tablet Orall y Twice a day Active Omeprazole 40 MG TAKE ONE CAPSULE BY MOUTH EVERY DAY; Duration: 90 Active Vitamin C 1000 MG 1 tablet Orally Once a day; Duration: 30 day(s) Active buPROPion HCl ER (SR) 150 MG TAKE ONE TABLET BY MOUTH EVERY MORNING; Duration: 90 days Active Mesalamine 400 MG 3 capsule Orally two times a day Active Levothyroxine Sodium 75 MCG 1 tablet in the morning on an empty stomach Orally Once a day; Duration: 90 days Active Creon [id number] UNIT as directed Oral ly with meals Active Doxazosin Mesylate 2 MG TAKE ONE TABLET BY MOUTH EVERY DAY; Duration: 90 Active Betamethasone Dipropionate 0.05 % 1 application Externally Once a day 06/09/2023 Active Align 4 MG as directed Orally 06/09/2023 Active Melatonin 5 MG 1 CAP(S) Orally ONCE A DAY (AT BEDTIME) Active Rosuvastatin Calcium 40 MG 1 tablet Oral ly Once a day; Duration: 90 days Active Fiber Choice 1 TABS P.O. Q DAY Active Memantine HCl 10 MG TAKE ONE TABLET BY M OUTH TWICE A DAY; Duration: 90 Active Ritalin 10 MG [address] omach Orally Twice a day; Duration: 30 days 01/07/2025 Active Fish Oil 500 MG 1 cap(s) orally once daily Active Multivitamin - 1 tab(s) orally once a day Active Immunizations Vaccine Route Administration Date Status Comme nts COVID 19 Pfizer Unknown 06/19/2020 Administered COVID 19 Pfizer Unknown 07/12/2020 Administered COVID 19 Pfizer Unknown 04/05/2021 Administered Fluzone PF Quad (6-35 months) Unknown 02/10/2021 Administered Fluzone Quad (6months&older) Unknown 02/09/2017 Administered Fluzone Quad (6months&older) IM Intramuscular 01/25/2022 Administered Shingrix IM Intramuscular 09/10/2020 Administered Shingrix IM Intramuscular 03/16/2021 Administered Tetanus Tdap-Adacel (over 7yrs) IM Intramuscular 10/31/2012 Administered Tetanus Tdap-Adacel (over 7yrs) IM Intramuscular 05/28/2015 Administered xFlu shot-36 months and older Unknown 01/24/2016 Administered Problems Problem Type SNOMED Code ICD Code Onset Dates Problem Status W/U Status Risk Notes Problem Hyperglycemia (94971178) Hyperglycemia (R73.9) Active confirmed Problem Hypothyroidism (35704292) Hypothyroidism (acquired) (E03.9) Active confirmed Problem Overactive bladder (037969904) Overactive bladder (N32.81) Active confirmed Problem Cervicalgia (30915018) Cervicalgia (M54.2) Active confirmed Problem Chronic pain (65610863) Other chronic pain (G89.29) Active confirmed Problem Fecal smearing (454211502) Fecal smearing (R15.1) Active confirmed Problem Incontinence of fece s (46852310) Full incontinence of feces (R15.9) Active confirmed Problem Male erectile disorder (286295176) Male erectile disorder (N52.9) Active confirmed Problem Malignant tumor of prostate (951756586) Prostate cancer (C61) Active confirmed Problem Organic affective disorder (99272753) Organic affective disorder (F06.30) Active confirmed Problem Acquired hypothyroidism (658684378) Acquired hypothyroidism (E03.9) Active confirmed Problem Neoplasm of skin of neck (121454363) Neoplasm of skin of neck (D49.2) Active confirmed Problem Hearing loss (67035192) Hearing deficit, bilateral (H91.93) Active confirmed Problem Acquired trigger finger (0191142) Trigger ring finger of left hand (M65.342) Active confirmed Problem Radiculopathy (39656784) Radiculopathy affecting upper extremity (M54.10) Active confirmed Problem Functional dyspepsia (3911645) 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) Active confirmed Problem Pure hypercholesterolemia (093145020) Pure hypercholesterolemia (E78.00) Active confirmed Problem Dermatitis (564439505) Dermatitis of foot (L30.9) Active confirmed Problem Contracture of allen r fascia (370023409) Dupuytren's contracture of both hands (M72.0) Active confirmed Problem Basal cell carcinoma of neck (disorder) (640567837) Basal cell carcinoma of skin of neck (C44.41) Active confirmed Problem Benign prostatic hypertrophy without outflow obstruction (543685757) Prostatic enlargement (N40.0) Active confirmed Vital Signs Heart Rate 69 /min 11/19/2024 Blood pressure diastolic 72 mm Hg 11/19/2024 Height 66.25 in 11/19/2024 Blood pressure systolic 130 mm Hg 11/19/2024 Weight 173.6 lbs 11/19/2024 BMI 27.81 kg/m2 11/19/2024 Encounters Encounter Location Date Provider Diagnosis [facility] [facility] [address] [place], [place] [id number] 02/20/2024 [place] Acute URI J06.9 [facility] [facility] [address] [place], [place] [id number] 03/05/2024 Felix Cochran Organic affective di sorder F06.30 ; Hearing deficit, bilateral H91.93 and Acquired hypothyroidism E03.9 [facility] [facility] [address] [place], [place] [id number] 06/14/2024 Felix Cochran Pure hypercholestero lemia E78.00 ; 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 and Hearing deficit, bilateral H91.93 [facility] [facility] [address] [place], [place] [id number] 09/14/2024 Felix Cochran Organic affective di sorder F06.30 ; Acquired hypothyroidism E03.9 and Prostate cancer C61 [facility] [facility] [address] [place], [place] [id number] 11/19/2024 J Chin Cochran Onychomycosis B35.1 ; Onychogryposis of toenail L60.2 and BMI 27.0-27.9,adult Z68.27 [facility] [address] [place], [place] [id number] 01/20/2024 [place] Organic affective di sorder F06.30 [facility] [address] [place], [place] [id number] 02/20/2024 J Chin Cochran Organic affective di sorder F06.30 [facility] [address] [place], [place] [id number] 03/12/2024 J Chin Cochran [facility] [address] [place] [id number] 03/22/2024 J Chin Cochran Organic affective di sorder F06.30 [facility] [address] [place], [place] [id number] 04/06/2024 J Chin Cochran Pure hypercholestero lemia E78.00 [facility] [address] [place] [id number] 04/24/2024 J Chin Cochran Organic affective di sorder F06.30 [facility] [address] [place] [id number] 05/25/2024 J Chin Cochran Organic affective di sorder F06.30 [facility] [address] [place] [id number] 06/18/2024 J Chin Cochran [facility] [address] [place], [place] [id number] 06/25/2024 J Chin Cochran Organic affective di sorder F06.30 [facility] [address] [place], [place] [id number] 08/01/2024 [place] Organic affective di sorder F06.30 [facility] [address] [place] [id number] 08/31/2024 [place] Organic affective di sorder F06.30 [facility] [address] [place] [id number] 10/01/2024 Felix Chin Dimas Organic affective di sorder F06.30 [facility] [address] [place] [id number] 10/29/2024 Felix Chin Cochran [facility] [address] [place], [place] [id number] 11/01/2024 Felix Chin Dimas Organic affective di sorder F06.30 [facility] [address] [place] [id number] 11/05/2024 Felix Chin Cochran [facility] [address] [place], [place] [id number] 12/04/2024 Felix Chin Cochran [facility] [address] [place], [place] [id number] 12/05/2024 Hair [place] Organic affective di sorder F06.30 [facility] [address] [place], [place] [id number] 01/04/2025 Felix Cochran Organic affective di sorder F06.30 Assessments Encounter Date Diagnosis (ICD Code) Assessment Notes Treatment Notes Treatment Clinical Notes Section Notes 01/20/2024 Organic affective disorder (ICD-10 - F06.30) 02/20/2024 Organic affective disorder (ICD-10 - F06.30) 02/20/2024 Acute URI (ICD-10 - J06.9) 03/05/2024 Organic affective disorder (ICD-10 - F06.30) continue present treatment. GI consult anticipated. 03/05/2024 Hearing deficit, bilateral (ICD-10 - H91.93) 03/22/2024 Organic affective disorder (ICD-10 - F06.30) 04/06/2024 Pure hypercholesterolemia (ICD-10 - E78.00) 04/24/2024 Organic affective disorder (ICD-10 - F06.30) 05/25/2024 Organic affective disorder (ICD-10 - F06.30) 06/14/2024 Organic affective disorder (ICD-10 - F06.30) 06/14/2024 Pure hypercholesterolemia (ICD-10 - E78.00) 06/25/2024 Organic affective disorder (ICD-10 - F06.30) 08/01/2024 Organic affective disorder (ICD-10 - F06.30) 08/31/2024 Organic affective disorder (ICD-10 - F06.30) 09/14/2024 Organic affective disorder (ICD-10 - F06.30) continue Rx 09/14/2024 Acquired hypothyroid ism (ICD-10 - E03.9) 10/01/2024 Organic affective disorder (ICD-10 - F06.30) 11/01/2024 Organic affective disorder (ICD-10 - F06.30) 11/19/2024 Onychomycosis (ICD-1 0 - B35.1) 11/19/2024 Onychogryposis of toenail (ICD-10 - L60.2) 12/05/2024 Organic affective disorder (ICD-10 - F06.30) 01/04/2025 Organic affective disorder (ICD-10 - F06.30) 11/19/2024 BMI 27.0-27.9,adult (ICD-10 - Z68.27) 09/14/2024 Prostate cancer (ICD -10 - C61) 06/14/2024 Hearing deficit, bilateral (ICD-10 - H91.93) 03/05/2024 Acquired hypothyroid ism (ICD-10 - E03.9) Plan Of Treatment Next Appt Details Provider Name:Felix de oliveira, 02/25/2025 11:00:00 AM, [address] [facility], [address], [place], [place], [id number], Insurance Providers Payer Name Payer Address Payer Phone Subscriber Number Group Number Insured Name Patient Relationship to Insured Coverage Start Date Coverage End Date [employer] [address] [place] [address] [id number] Self - patient is the insured Medical (General) History Medical History History ICD Code Seizures Hyperlipidemia post remote head trauma Overactive bladder Surgical History Surgery Date(Month/Year) Brain 09/1988 Appendectomy colonoscopy with polypectomy, Dr. Salvatore bergeron 05/2010 Cochlear implant, [facility] 06/[address] Mueller 07/2021
--- OUTSIDE RECORDS SUMMARY | 2025-01-11 08:57 | XMS_ITS | Referral Summary ---
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 Active doxazosin (CARDURA) 2 MG tablet Take 1 tablet (2 mg total) by mouth nightly. Active galantamine (RAZADYNE) 4 MG tablet Take 1 tablet (4 mg total) by mouth 2 (two) times daily. Active mirabegron (MYRBETRIQ) 25 mg Tb24 ER tablet Take 1 tablet (25 mg total) by mouth daily. Active memantine 28 mg CSpX Take 1 capsule (28 mg total) by mouth daily. Active omeprazole (PriLOSEC) 40 MG capsule Take 1 capsule (40 mg total) by mouth daily. Active pravastatin (PRAVACHOL) 80 MG tablet Take 1 tablet (80 mg total) by mouth daily. Active methylphenidate HCl (RITALIN) 20 MG tablet Take 1 tablet (20 mg total) by mouth 2 (two) times daily. Active alfuzosin (UROXATRAL) 10 mg 24 hr tablet Take 1 tablet (10 mg total) by mouth. 12/15/2021 Active levothyroxine (SYNTHROID, LEVOTHROID) 50 MCG tablet 10/27/2021 Active pancrelipase, Rvo-Ushj-Qied, (CREON) 36,000-114,000- 180,000 unit CpDR capsule 08/17/2021 Active melatonin-pyrid oxine, vit B6, 5-1 mg Tab Take 5 mg by mouth. Active omega-3 fatty acids-fish oil (Fish OiL) 340-1,000 mg Cap per capsule Take by mouth. Active memantine (NAMENDA) 10 MG tablet 07/21/2021 Active OXcarbazepine (TRILEPTAL) 300 MG tablet TAKE ONE TABLET BY MOUTH THREE TIMES A DAY 270 tablet 4 07/03/2024 Active Active Problems Problem Noted Date Diagnosed Date Prostate cancer 02/22/2022 Intractable localization-related epilepsy 2020 Social History Tobacco Use Types Packs/Day Years Used Date Smoking Tobacco: Former Smokeless Tobacco: Never Tobacco Cessation:Counseling Given: Not Answered Alcohol Use Standard Drinks/Week Comments Never 0 (1 standard drink = 0.6 oz pur e alcohol) Family and Community Support Answer Nixon e Recorded Help with Day to Day Activities Not on file 05/06/2023 Feeling Lonely or Isolated Not on file 05/06 Educational Attainment Answer Date Neel rded Speak language other than Marshallese at home Not on file 05/06/2023 Want help with school or training Not on file 05/06/2023 Substance Use Answer Date Recorded Used prescription meds for non-medical reasons N ot on file 05/06/2023 Used illegal drugs past 12 months Not on file 05/06/2023 Sex and Gender Information Value Date Recorded Sex Assigned at Not on file Legal Sex Male 7:29 PM CDT Gender Identity Not on file Sexual Orientation Not on file Last Filed Vital Signs Vital Sign Reading Time Taken Comments Blood Pressure 144/69 10/16/2024 1:46 PM EDT Pulse 67 10/16/2024 1:46 PM EDT Temperature 37 C (98.6 F) 02/21/2023 1:47 PM EST Respiratory Rate - - Oxygen Saturation 90% 02/21/2023 1:47 PM EST Inhaled Oxygen Concentration - - Weight 78.3 kg (172 lb 9.6 oz) 10/16/2024 1:46 P M EDT Height 167.6 cm (5' 6 ) 10/16/2024 1:46 PM EDT Body Mass Index 27.86 10/16/2024 1:46 PM EDT Plan of Treatment Upcoming Encounters Date Type Department Care Team (Late st Contact Info) Description 10/21/2025 1:30 PM EDT Office Visit [facility] Neurology [address] [facility] [address] [place] [address] Matt Lopez MD [address] [facility] [address] [place] [address] Insurance BLUE CROSS[employer]UE SHIELD
== END 2025-01-11 23:59 | disposition home or self-care (01) ==
LOC: RT 08:17
PROVIDERS: PCP Family Medicine; Visit Provider Nurse Practitioner
DX: I73.9 Peripheral vascular disease, unspecified (principal); E11.9 Type 2 diabetes mellitus without complications; E78.5 Hyperlipidemia, unspecified; I10 Essential (primary) hypertension; M79.606 Pain in leg, unspecified; R09.89 Other specified symptoms and signs involving the circulatory and respiratory systems
CPT/HCPCS: 93923